=== PATIENT | female | born 1950 | race African-American/Black ===

== ENCOUNTER 2018-08-14 19:49 | Inpatient (IN) | payer MEDICARE, MEDICAID ==
[2018-08-14 22:26] LABS: Anion Gap 16 mmol/L (10-20); BUN (Urea Nitrogen) 44 mg/dL (9.8-20.1); Calc. Creatinine Clearance 0 mL/min (70-130); Carbon Dioxide 25 mmol/L (23-31); Chloride 105 mmol/L (98-107); Estimated GFR-MDRD 39; Glucose 144 mg/dL (80-115); Potassium 3.4 mmol/L (3.5-5.1); Sodium 143 mmol/L (136-145)
[2018-08-14 23:15] LABS: Calcium 16.5 mg/dL (7.8-10.44)
[2018-08-14] MEDS ORDERED: Senokot S 8.6-50 MG TAB PO PRN (23:43)
[2018-08-14] MEDS ORDERED: Ondansetron PF 4 MG/2 ML Vial IVP PRN (23:43)
[2018-08-14] MEDS ORDERED: Bisacodyl 5 MG TAB PO PRN (23:43)
[2018-08-14] MEDS ORDERED: Acetaminophen 325 MG TAB PO PRN (23:43)
[2018-08-15 01:09] LABS: Anion Gap 16 mmol/L (10-20); BUN (Urea Nitrogen) 43 mg/dL (9.8-20.1); Calc. Creatinine Clearance 57 mL/min (70-130); Carbon Dioxide 26 mmol/L (23-31); Chloride 107 mmol/L (98-107); Estimated GFR-MDRD 41; Glucose 168 mg/dL (80-115); Potassium 3.5 mmol/L (3.5-5.1); Sodium 145 mmol/L (136-145)
[2018-08-15 01:12] LABS: Calcium 16.1 mg/dL (7.8-10.44)
[2018-08-15] MEDS: Sodium Chloride 0.9% 1,000 ML IV SCH ×2 (01:12→08:09)
[2018-08-15 01:30] LABS: #Lymphocytes 0.5 thou/uL (1.20-3.40); #Monocytes 0.7 thou/uL (0.11-0.59); #Neutrophils 13.7 thou/uL (1.40-6.50); %Eosinophils 0.3 % (0.0-10.0); %Lymphocytes 3.5 % (21.0-51.0); %Monocytes 4.5 % (0.0-10.0); %Neutrophils 91.7 % (42.0-75.0); Mean Corpuscular HGB CONC 29.2 g/dL (32.0-36.0); Mean Corpuscular Hemoglobin 25.3 pg (27.0-31.0); Mean Corpuscular Volume 86.4 fL (78.0-98.0); Mean Platelet Volume 9.1 fL (7.4-10.4); Platelet Count 400 thou/uL (130-400); RBC Distribution Width 15.7 % (11.5-14.5); Red Blood Cell (RBC) Count 5.14 mill/uL (4.20-5.40); White Blood Cell (WBC) Count 14.9 thou/uL (4.8-10.8)
[2018-08-15 01:31] LABS: Lymphocytes 5 % (21-51); MDiff Complete? YES; Monocytes 1 % (0-10); Neutrophil 94 % (42-75); PLT Morphology Comment Appears Adequate; RBC Morphology Normal
--- NOTE | 2018-08-15 01:37 | PDOC.EVN ---
Event Note - Event Note Event Note: h&p [id number]
[2018-08-15 02:05] LABS: Lactic Acid 1.8 mmol/L (0.5-2.2)
[2018-08-15 02:09] LABS: ALT (SGPT) 17 U/L (8-55); AST (SGOT) 13 U/L (5-34); Albumin 3.2 g/dL (3.4-4.8); Alkaline Phosphatase 117 U/L (40-150); Anion Gap 14 mmol/L (10-20); BUN (Urea Nitrogen) 41 mg/dL (9.8-20.1); Bilirubin, Total 0.3 mg/dL (0.2-1.2); Calc. Creatinine Clearance 60 mL/min (70-130); Carbon Dioxide 26 mmol/L (23-31); Chloride 108 mmol/L (98-107); Estimated GFR-MDRD 43; Globulin 5.1 g/dL (2.4-3.5); Glucose 163 mg/dL (80-115); Protein, Total 8.3 g/dL (6.0-8.3); Sodium 145 mmol/L (136-145)
[2018-08-15 02:11] LABS: Calcium 15.9 mg/dL (7.8-10.44)
[2018-08-15] MEDS: cefTRIAXone\\ROCEPHIN 1 GM in Sodium Chloride 0.9% 100 ML IVPB SCH (03:23)
--- NOTE | 2018-08-15 03:36 | HP ---
PRIMARY CARE PHYSICIAN: Patient does not have a listed PCP that she is able to recall. CHIEF COMPLAINT: Altered mental status. HISTORY OF PRESENT ILLNESS: This is a 67-year-old female with a recent diagnosis of lung cancer who was brought in by her family for decreased mentation. At the time of my evaluation, the patient is unable to provide a history. She is arousable, answers simple questions, but is unable to provide narrative. She has brought in from another hospital emerg ency department in [place] where she is found to have hypercalcemia and urinary tract infection. She has been given IV fluids and Rocephin at that facility. At the time of my evaluation in the emergency department, the patient is still unable to give a histo ry. There is no one picking up her home phone. REVIEW OF SYSTEMS: Unable to obtain secondary to patient's decreased mentation. She is very limited in her ability to provide a history at this point in time. PAST MEDICAL HISTORY: Per ER report, significant for metastatic lung cancer, unknown type. The ny ent was presumably supposed to start chemotherapy on Thursday. PAST SURGICAL HISTORY: Unable to obtain. Per ER records, it also appears that the patient's family members that brought her in also knew very little of her past medical or recent condition. SOCIAL HISTORY: Unable to obtain. FAMILY HISTORY: Unable to obtain. ALLERGIES: Unable to accurately obtain. PHYSICAL EXAMINATION: VITAL SIGNS: Initial vital signs, blood pressure 165/94, heart rate of 93, respirations 20, temperat ure of 98.1, satting 97% on room air. GENERAL: The patient is lying in the hospital bed, in no acute distress. Her eyes are closed. She is arousable, able to answer simple questions, able to state her name, able to answer yes or no quest ions, but unable to give any narrative. HEENT: Equal ocular motions are intact. Very dry mucous membranes. Normocephalic, atraumatic. CARDIOVASCULAR: S1, S2. No murmurs, rubs, or gallops. Pulses 2+ bilateral upper extremities. RESPIRATORY: No conversational dyspnea. Reasonable air movement. Clear to auscultation. ABDOMEN: Large, obese, positive bowel sounds, soft, tender to deep palpation, but not tender to mild palpation. LABORATORY DATA AND IMAGING: WBC 14.9, hemoglobin 13.0, hematocrit 44.4, platelets of 400. Sodium 1 45, potassium 3.5, bicarbonate 107, BUN 16, creatinine 1.52, glucose 168, calcium 6.1, magnesium 2.0. ASSESSMENT AND PLAN: 1. Hypercalcemia, etiology is not completely clear, but suspect it may be related to the patient's u nderlying oncologic issues. Continue with IV fluid. Serum calcium has slowly improved from 16.5 to first repeat at 16.1. We will continue to closely monitor and maintain on telemetry. I appreciate n ephrology consultation. I appreciate oncology consultation as well. 2. Lung cancer, unknown type, staging, although suspected metastases. 3. Leukocytosis, unclear if a component of infection is involved. It appears that there was a urina ry tract infection noted in the emergency department. We will continue with empiric ceftriaxone for the time being and repeat UA, blood culture, urine culture as well. Check a lactic acid for this pat ient as well who has elevated neutrophils and leukocytosis. Continue supportive management as per ab sherinee. DIET: As tolerated. ACTIVITY: As tolerated. Deep venous thrombosis prophylaxis: Enoxaparin.
[2018-08-15 05:56] LABS: Anion Gap 17 mmol/L (10-20); BUN (Urea Nitrogen) 39 mg/dL (9.8-20.1); Calc. Creatinine Clearance 64 mL/min (70-130); Carbon Dioxide 24 mmol/L (23-31); Chloride 111 mmol/L (98-107); Estimated GFR-MDRD 47; Glucose 119 mg/dL (80-115); Potassium 3.7 mmol/L (3.5-5.1); Sodium 148 mmol/L (136-145)
[2018-08-15 05:58] LABS: Calcium 15.5 mg/dL (7.8-10.44)
[2018-08-15] MEDS ORDERED: Eucerin (Mineral Oil/Petrolatum,White) 30 gm Jar TOP PRN (07:13)
[2018-08-15] MEDS ORDERED: Zolpidem Tartrate 5 MG TAB PO PRN (07:13)
[2018-08-15] MEDS ORDERED: Loperamide HCl 2 MG CAP PO PRN (07:13)
[2018-08-15] MEDS ORDERED: Cepastat Lozenges 1 LOZ PO PRN (07:13)
[2018-08-15] MEDS ORDERED: Artificial Tears 18 DROP/0.9 ML EA EYE PRN (07:13)
[2018-08-15] MEDS ORDERED: Sodium Chloride 0.65% Nasal 44 ML BOT EA NARE PRN (07:13)
[2018-08-15] MEDS ORDERED: Bisacodyl 10 MG SUPP PR PRN (07:13)
[2018-08-15] MEDS ORDERED: Diabetic Tussin 200 MG/10 ML UDCUP PO PRN (07:13)
[2018-08-15] MEDS ORDERED: cloNIDine 0.1 MG TAB PO PRN (07:13)
[2018-08-15] MEDS ORDERED: Ondansetron ODT 4 MG TAB SL PRN (07:13)
[2018-08-15] MEDS ORDERED: hydrALAZINE 20 MG/ML VIAL SLOW IVP PRN (07:13)
[2018-08-15] MEDS ORDERED: HYDROcodone/Acetaminophen 5/325 mg Tablet PO PRN (07:13)
[2018-08-15] MEDS ORDERED: Loratadine 10 MG TAB PO PRN (07:13)
[2018-08-15] MEDS ORDERED: Morphine ER 15 MG TAB PO PRN (07:14)
[2018-08-15] MEDS ORDERED: Dextrose 5% in Water 1,000 ML IV PRN (07:15)
[2018-08-15] MEDS ORDERED: HumaLOG 300 UNITS/3 ML VIAL SC PRN (07:15)
[2018-08-15] MEDS ORDERED: Dextrose 50% Abboject 50 ML SYRINGE SLOW IVP PRN (07:15)
[2018-08-15] MEDS ORDERED: Nitroglycerin 0.4 MG TAB (25 Tab Bottle) SL SCH (07:15)
[2018-08-15 08:15] LABS: Parathyroid Hormone - Intact 4.6 pg/mL (19.8-88.0)
[2018-08-15] MEDS ORDERED: Non-Formulary Item 1 EACH (Rosuvastatin Calcium [Rosuvastatin Calcium] 40 MG) PO SCH (09:00)
[2018-08-15] MEDS ORDERED: DOXEPIN HCL 50 MG PO SCH (09:00)
[2018-08-15] MEDS ORDERED: BUPROPION HCL 150 MG PO SCH (09:00)
[2018-08-15] MEDS ORDERED: Zoledronic Acid 4 MG in Sodium Chloride 0.9% 100 ML IVPB SCH (09:45)
[2018-08-15] MEDS: 1/2 NS w/KCL 20 mEq 1,000 ML IV SCH ×4 (10:05→22:45)
[2018-08-15] MEDS: Heparin 5,000 UNITS/ML VIAL SC SCH ×3 (10:06→21:34)
[2018-08-15] MEDS: Famotidine/PF 20 mg/2ml Vial SLOW IVP SCH ×2 (10:06→21:34)
--- NOTE | 2018-08-15 10:30 | PDOC.PN ---
- Subjective Encounter Start Date: 08/15/18 Encounter Start Time: 07:30 -: old records requested/rev Patient seen and examined. pt is incoherent. No overnight events - Objective Resuscitation Status: Resuscitation Status FULL:Full Resuscitation MAR Reviewed: Yes Vital Signs & Weight: Vital Signs (12 hours) Temp Pulse Resp BP Pulse Ox 08/15/18 07:48 97.6 F 82 20 169/73 H 94 L 08/15/18 04:00 98.0 F 83 20 179/77 H 100 08/14/18 23:55 97.4 F L 86 16 173/73 H 94 L 08/14/18 23:43 94 L Weight Weight 226 lb 6.4 oz Result Diagrams: 08/15/18 00:23 08/15/18 05:20 Additional Labs: Accuchecks 08/15/18 08:00 POC Glucose 92 EKG Reviewed by me: Yes Phys Exam - Physical Examination Constitutional: NAD HEENT: PERRLA, sclera anicteric dry MM Neck: no JVD, supple Respiratory: no wheezing, no rales, no rhonchi Cardiovascular: RRR, no significant murmur, no rub Gastrointestinal: soft, no distention, positive bowel sounds obesity+ Musculoskeletal: no edema, pulses present Neurological: moves all 4 limbs Lymphatic: no nodes Psychiatric: normal affect Skin: no rash, normal turgor Dx/Plan (1) Acute kidney failure Status: Acute (2) Acute metabolic encephalopathy Code(s): G93.41 - METABOLIC ENCEPHALOPATHY Status: Acute (3) Hypercalcemia of malignancy Code(s): E83.52 - HYPERCALCEMIA Status: Acute (4) Hypokalemia Code(s): E87.6 - HYPOKALEMIA Status: Acute (5) Lung cancer Code(s): C34.90 - MALIGNANT NEOPLASM OF UNSP PART OF UNSP BRONCHUS OR LUNG Status: Acute (6) Vitamin D deficiency Code(s): E55.9 - VITAMIN D DEFICIENCY, UNSPECIFIED Status: Acute (7) Anxiety and depression Code(s): F41.9 - ANXIETY DISORDER, UNSPECIFIED; F32.9 - MAJOR DEPRESSIVE DISORDER, SINGLE EPISODE, UNSPECIFIED Status: Chronic (8) Diabetes type 2, controlled Code(s): E11.9 - TYPE 2 DIABETES MELLITUS WITHOUT COMPLICATIONS Status: Chronic (9) Dyslipidemia Code(s): E78.5 - HYPERLIPIDEMIA, UNSPECIFIED Status: Chronic (10) GERD (gastroesophageal reflux disease) Code(s): K21.9 - GASTRO-ESOPHAGEAL REFLUX DISEASE WITHOUT ESOPHAGITIS Status: Chronic (11) Hypertension Code(s): I10 - ESSENTIAL (PRIMARY) HYPERTENSION Status: Chronic (12) Obesity (BMI 30-39.9) Code(s): E66.9 - OBESITY, UNSPECIFIED Status: Chronic - 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 * home medication reconciled, she is incoherent but slowly improving * continue IVF 1/2 NS at 125 ml per hour and continue IV lasix * check PTH, PTHRP, VITAMIN D, PHOS * check UA, urine calcium * oncology and nephology consult * medication reviewed as below * symptomatic treatment * monitor labs . Review of Systems - Review of Systems Other: unable to review due to encephalopathy - Medications/Allergies Allergies/Adverse Reactions: Allergies Allergy/AdvReac Type Severity Reaction Status Date / Time No Known Allergies Allergy Unverified 08/14/18 23:52 Medications: Current Medications Acetaminophen (Tylenol) 500 mg PO Q6H PRN PRN Reason: Mild Pain (1-3) Hydrocodone Bitart/Acetaminophen ([place] 5/325) 1 tab PO Q4H PRN PRN Reason: Moderate Pain (4-6) Amlodipine Besylate (Norvasc) 10 mg PO DAILY [facility] Artificial Tears (Tears Naturale) 2 drop EA EYE PRN PRN PRN Reason: Dry Eyes Bisacodyl (Dulcolax) 10 mg PO DAILYPRN PRN PRN Reason: Constipation Bisacodyl (Dulcolax) 10 mg [place] DAILYPRN PRN PRN Reason: Constipation Bupropion HCl (Wellbutrin Sr) 150 mg PO BID [facility] Cholecalciferol (Vitamin D3) 1,000 units PO DAILY [facility] Clonidine (Catapres) 0.2 mg PO BID [facility] Clonidine (Catapres) 0.1 mg PO Q4H PRN PRN Reason: SBP Greater Than 170 Clopidogrel Bisulfate (Plavix) 75 mg PO DAILY [facility] Dextrose/Water (Dextrose 50%) 25 gm SLOW IVP PRN PRN PRN Reason: Hypoglycemia Doxepin HCl (Sinequan) 50 mg PO DAILY [facility] Famotidine (Pepcid) 20 mg SLOW IVP Q12HR [facility] Last Admin: 11/04/18 10:06 Dose: 20 mg Furosemide (Lasix) 20 mg SLOW IVP 0600,1400 [facility] Glucagon (Glucagon) 1 mg IM PRN PRN PRN Reason: Hypoglycemia Guaifenesin (Robitussin Sf) 200 mg PO Q4H PRN PRN Reason: Cough Heparin Sodium (Porcine) (Heparin) 5,000 units SC TID [facility] Last Admin: 08/15/18 10:06 Dose: 5,000 units Hydralazine HCl (Apresoline) 10 mg SLOW IVP Q4H PRN PRN Reason: SBP Greater Than 170 Ceftriaxone Sodium 1 gm/ (Sodium Chloride) 100 mls @ 200 mls/hr IVPB Q24HR [facility] Last Admin: 08/15/18 03:23 Dose: 100 mls Potassium Chloride/Sodium Chloride (1/2 Ns W/Kcl 20 Meq) 1,000 mls @ 125 mls/ hr IV .Q8H [facility] Last Admin: 08/15/18 10:05 Dose: 1,000 mls Dextrose/Water (D5w) 1,000 mls @ 0 mls/hr IV .Q0M PRN PRN Reason: Hypoglycemia Zoledronic Acid 4 mg/ Sodium (Chloride) 100 mls @ 100 mls/hr IVPB NOW [facility] Stop: 08/15/18 14:00 Last Admin: 08/15/18 10:18 Dose: 100 mls Insulin Human Lispro (Humalog) 0 units SC .MODERATE SLIDING SC PRN PRN Reason: Moderate Correctional Scale Insulin Human Lispro (Humalog) 0 units SC .BEDTIME SLIDING SC PRN PRN Reason: Bedtime Correctional Scale Isosorbide Mononitrate (Ismo) 20 mg PO DAILY [facility] Loperamide HCl (Imodium) 2 mg PO PRN PRN PRN Reason: Diarrhea/Loose Stools Loratadine (Claritin) 10 mg PO DAILYPRN PRN PRN Reason: Sinus Symptoms Mineral Oil/White Petrolatum (Eucerin Cream) 0 gm TOP BIDPRN PRN PRN Reason: Dry Skin Morphine Sulfate (Ms Contin) 30 mg PO Q8H PRN PRN Reason: Pain Nitroglycerin (Nitrostat) 0.4 mg SL Q5MIN [facility] Ondansetron HCl (Zofran) 4 mg IVP Q6H PRN PRN Reason: Nausea/Vomiting Ondansetron HCl (Zofran Odt) 4 mg SL Q6H PRN PRN Reason: Nausea/Vomiting Potassium Chloride (K-Dur) 20 meq PO BID [facility] Rosuvastatin Calcium (Crestor) 40 mg PO HS [facility] Senna/Docusate Sodium (Senokot S) 2 tab PO BID PRN PRN Reason: Constipation Sodium Chloride (Flush - Normal Saline) 10 ml IVF Q12HR [facility] Last Admin: 08/15/18 10:07 Dose: Not Given Sodium Chloride (Flush - Normal Saline) 10 ml IVF PRN PRN PRN Reason: Saline Flush Sodium Chloride ([place] Nasal [place] 0.65%) 0 ml EA NARE QIDPRN PRN PRN Reason: Nasal Congestion Throat Lozenges (Cepastat Lozenges) 1 micky PO Q2H PRN PRN Reason: Sore Throat Zolpidem Tartrate (Ambien) 5 mg PO HSPRN PRN PRN Reason: Insomnia
[2018-08-15] MEDS: Amlodipine 10 MG TAB PO SCH (10:35)
[2018-08-15] MEDS: Doxepin HCl 25 MG CAP PO SCH (10:36)
[2018-08-15] MEDS: Bupropion 150 MG SR TAB PO SCH ×2 (10:36→21:33)
[2018-08-15] MEDS: cloNIDine 0.2 MG TAB PO SCH ×2 (10:36→21:33)
[2018-08-15] MEDS: Clopidogrel Bisulfate 75 MG TAB PO SCH (10:36)
[2018-08-15] MEDS: Isosorbide Mononitrate 20 MG TAB PO SCH (10:36)
[2018-08-15] MEDS: Potassium Chloride 20 MEQ TAB PO SCH ×2 (10:37→21:33)
[2018-08-15 11:49] LABS: Bilirubin Negative (Negative); Blood, Urine Negative (Negative); Clarity CLEAR (Clear); Glucose, Urine (Dipstick) Negative (Negative); Leukocyte Small (Negative); Nitrite Negative (Negative); Protein, Urine (Dipstick) Negative (Neg-Trace); Urobilinogen 0.2 mg/dL (0.2-1.0); pH, Urine 6.5 (5.0-9.0)
[2018-08-15 11:50] LABS: Bacteria/HPF None Seen HPF (None Seen); Pathc Cast-AUWi Flag 2.32 (0-2.49); RBC/HPF 0-3 HPF (0-3)
[2018-08-15 12:28] LABS: Hyaline Casts/LPF 0-3 HYALINE CAST LPF (0-3 Hyaline)
[2018-08-15 12:53] LABS: Anion Gap 15 mmol/L (10-20); BUN (Urea Nitrogen) 35 mg/dL (9.8-20.1); Calc. Creatinine Clearance 65 mL/min (70-130); Carbon Dioxide 26 mmol/L (23-31); Chloride 109 mmol/L (98-107); Estimated GFR-MDRD 47; Glucose 100 mg/dL (80-115); Potassium 3.3 mmol/L (3.5-5.1); Sodium 147 mmol/L (136-145)
[2018-08-15 13:00] LABS: Calcium 16.7 mg/dL (7.8-10.44)
--- NOTE | 2018-08-15 14:13 | CON ---
DATE OF CONSULTATION: 08/15/2018 CONSULTING PHYSICIAN: Lorne Bustillos MD REASON FOR CONSULTATION: Acute kidney injury. REASON FOR ADMISSION: Altered mentation. HISTORY OF PRESENT ILLNESS: A 67-year-old female with history of lung cancer, came to the hospital w ith altered mentation. Nephrology is consulted for acute kidney injury. Her creatinine was 1.5. The patient is not able to give a good history. No chest pain or palpitation reported. Patient has also hypocalcemia and Oncology is following. PAST MEDICAL HISTORY: Positive for metastatic lung cancer. PAST SURGICAL HISTORY: Not available. HOME MEDICATIONS: Include nitroglycerin, Glucotrol, metformin, metoprolol, bupropion, potassium, mor phine, Lasix, Plavix, , Levemir. ALLERGIES: No known drug allergies. SOCIAL HISTORY: No smoking, alcohol, or illicit drug abuse. FAMILY HISTORY: No history of kidney disease. REVIEW OF SYSTEMS: Could not be obtained. The patient not able to participate very well. PHYSICAL EXAMINATION: GENERAL: This is a well-built female in no apparent distress. VITAL SIGNS: Temperature 97.6, pulse 82, respiratory rate 16, blood pressure 116/72. HEENT: Atraumatic, normocephalic. Oral mucosa is moist. NECK: Supple, no masses. CARDIOVASCULAR: S1, S2 heard. Rate and rhythm regular. RESPIRATORY: Clear. ABDOMEN: Soft. EXTREMITIES: 1+ edema. DERMATOLOGIC: No skin rash. NEUROLOGIC: Lethargic. LABORATORY DATA: Hemoglobin is 13.0, potassium is 3.3, BUN is 35, creatinine is 1.3. ASSESSMENT AND PLAN: 1. Acute kidney injury, most likely volume depletion, getting better. 2. Hypercalcemia. Agree with hydration and Zometa being given. 3. Hypokalemia, replace and monitor. 4. Vitamin D deficiency. 5. Edema, controlled. Continue hydration, avoid nephrotoxins. 6. Hypernatremia. Continue with . Monitor labs closely. Continue to monitor calcium and hydra tion if tolerated. Thank you for the consult.
[2018-08-15] MEDS: Furosemide 20 MG/2 ML VIAL SLOW IVP SCH (14:46)
[2018-08-15 16:25] LABS: Reference Lab Name LABCORP
[2018-08-15 17:19] LABS: Anion Gap 16 mmol/L (10-20); BUN (Urea Nitrogen) 32 mg/dL (9.8-20.1); Calc. Creatinine Clearance 65 mL/min (70-130); Carbon Dioxide 25 mmol/L (23-31); Chloride 108 mmol/L (98-107); Estimated GFR-MDRD 47; Glucose 121 mg/dL (80-115); Potassium 3.4 mmol/L (3.5-5.1); Sodium 146 mmol/L (136-145)
[2018-08-15 17:32] LABS: Calcium 16.7 mg/dL (7.8-10.44)
[2018-08-15] MEDS: Rosuvastatin 20 MG TAB PO SCH (21:33)
[2018-08-15 22:47] LABS: Anion Gap 17 mmol/L (10-20); BUN (Urea Nitrogen) 32 mg/dL (9.8-20.1); Calc. Creatinine Clearance 61 mL/min (70-130); Calcium 16.8 mg/dL (7.8-10.44); Carbon Dioxide 27 mmol/L (23-31); Chloride 107 mmol/L (98-107); Estimated GFR-MDRD 45; Glucose 126 mg/dL (80-115); Potassium 3.2 mmol/L (3.5-5.1); Sodium 148 mmol/L (136-145)
[2018-08-16] MEDS: cefTRIAXone\\ROCEPHIN 1 GM in Sodium Chloride 0.9% 100 ML IVPB SCH (01:03)
[2018-08-16 05:17] LABS: #Lymphocytes 0.6 thou/uL (1.20-3.40); #Monocytes 1.7 thou/uL (0.11-0.59); #Neutrophils 16.2 thou/uL (1.40-6.50); %Eosinophils 0.2 % (0.0-10.0); %Lymphocytes 3.3 % (21.0-51.0); %Monocytes 9.4 % (0.0-10.0); %Neutrophils 87.1 % (42.0-75.0); Hemoglobin 13.4 g/dL (12.0-16.0); Mean Corpuscular Hemoglobin 24.9 pg (27.0-31.0); Mean Corpuscular Volume 85.8 fL (78.0-98.0); Mean Platelet Volume 9.3 fL (7.4-10.4); Platelet Count 386 thou/uL (130-400); RBC Distribution Width 15.8 % (11.5-14.5); Red Blood Cell (RBC) Count 5.37 mill/uL (4.20-5.40); White Blood Cell (WBC) Count 18.6 thou/uL (4.8-10.8)
[2018-08-16 05:19] LABS: Anion Gap 15 mmol/L (10-20); BUN (Urea Nitrogen) 30 mg/dL (9.8-20.1); Calc. Creatinine Clearance 65 mL/min (70-130); Carbon Dioxide 26 mmol/L (23-31); Chloride 109 mmol/L (98-107); Estimated GFR-MDRD 48; Glucose 128 mg/dL (80-115); Potassium 3.2 mmol/L (3.5-5.1); Sodium 147 mmol/L (136-145)
[2018-08-16 05:21] LABS: Calcium 15.5 mg/dL (7.8-10.44)
[2018-08-16] MEDS: 1/2 NS w/KCL 20 mEq 1,000 ML IV SCH ×2 (06:27→16:27)
[2018-08-16] MEDS: Furosemide 20 MG/2 ML VIAL SLOW IVP SCH ×2 (06:27→14:21)
[2018-08-16] MEDS: Heparin 5,000 UNITS/ML VIAL SC SCH ×3 (09:10→21:30)
[2018-08-16] MEDS: Famotidine/PF 20 mg/2ml Vial SLOW IVP SCH ×2 (09:10→21:30)
--- NOTE | 2018-08-16 09:30 | PDOC.PN ---
- Subjective Encounter Start Date: 08/16/18 Encounter Start Time: 07:20 pt is more alert, arousable, still confused and appears very weak Patient seen and examined. No overnight events - Objective Resuscitation Status: Resuscitation Status FULL:Full Resuscitation MAR Reviewed: Yes Vital Signs & Weight: Vital Signs (12 hours) Temp Pulse Resp BP BP Pulse Ox 08/16/18 07:30 98.5 F 88 22 H 157/72 H 100 08/16/18 04:00 98.1 F 91 22 H 172/86 H 100 08/16/18 00:00 97.9 F 90 18 142/91 H 100 08/15/18 21:33 164/74 H Weight Weight 226 lb 6.4 oz I&O: 08/15/18 08/16/18 08/17/18 06:59 06:59 06:59 Intake Total 1140 1500 Output Total 40 Balance 1100 1500 Result Diagrams: 08/16/18 04:24 08/16/18 04:24 Additional Labs: Accuchecks 08/16/18 08/15/18 08/15/18 05:44 20:40 16:46 POC Glucose 111 H 104 115 H 08/15/18 12:44 POC Glucose 97 EKG Reviewed by me: Yes (nsr) Phys Exam - Physical Examination Constitutional: NAD HEENT: PERRLA, sclera anicteric dry MM Neck: no JVD, supple Respiratory: no wheezing, no rales, no rhonchi Cardiovascular: RRR, no significant murmur, no rub Gastrointestinal: soft, non-tender, no distention, positive bowel sounds Musculoskeletal: no edema, pulses present Neurological: moves all 4 limbs Lymphatic: no nodes Psychiatric: normal affect Skin: no rash, normal turgor Dx/Plan (1) Acute kidney failure Status: Acute (2) Acute metabolic encephalopathy Code(s): G93.41 - METABOLIC ENCEPHALOPATHY Status: Acute (3) Hypercalcemia of malignancy Code(s): E83.52 - HYPERCALCEMIA Status: Acute (4) Hypokalemia Code(s): E87.6 - HYPOKALEMIA Status: Acute (5) Lung cancer Code(s): C34.90 - MALIGNANT NEOPLASM OF UNSP PART OF UNSP BRONCHUS OR LUNG Status: Acute (6) Vitamin D deficiency Code(s): E55.9 - VITAMIN D DEFICIENCY, UNSPECIFIED Status: Acute (7) Anxiety and depression Code(s): F41.9 - ANXIETY DISORDER, UNSPECIFIED; F32.9 - MAJOR DEPRESSIVE DISORDER, SINGLE EPISODE, UNSPECIFIED Status: Chronic (8) Diabetes type 2, controlled Code(s): E11.9 - TYPE 2 DIABETES MELLITUS WITHOUT COMPLICATIONS Status: Chronic (9) Dyslipidemia Code(s): E78.5 - HYPERLIPIDEMIA, UNSPECIFIED Status: Chronic (10) GERD (gastroesophageal reflux disease) Code(s): K21.9 - GASTRO-ESOPHAGEAL REFLUX DISEASE WITHOUT ESOPHAGITIS Status: Chronic (11) Hypertension Code(s): I10 - ESSENTIAL (PRIMARY) HYPERTENSION Status: Chronic (12) Obesity (BMI 30-39.9) Code(s): E66.9 - OBESITY, UNSPECIFIED Status: Chronic (13) Hypomagnesemia Code(s): E83.42 - HYPOMAGNESEMIA Status: Acute (14) Leucocytosis Code(s): D72.829 - ELEVATED WHITE BLOOD CELL COUNT, UNSPECIFIED Status: Acute - 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, continue antibiotics, PT/OT * pt is tolerating IVF, she is lying flat and on room air, continue lasix as well to prevent fluid overload, still calcium very high, Zolendronic acid given yesterday, so expecting improvement soon * today replace magnesium and potassium * renal function are stable * oncology and nephrology input appreciated * will need placement on discharge * start bedside swallow evaluation, call speech therapy if needed and start diet as tolerated * start PT/OT * medication reviewed as below * symptomatic treatment . Review of Systems - Review of Systems ENT: negative: Ear Pain, Ear Discharge, Nose Pain, Nose Discharge, Nose Congestion, Mouth Pain, Mouth Swelling, Throat Pain, Throat Swelling, Other Respiratory: negative: Cough, Dry, Shortness of Breath, Hemoptysis, SOB with Excertion, Pleuritic Pain, Sputum, Wheezing Cardiovascular: negative: chest pain, palpitations, orthopnea, paroxysmal nocturnal dyspnea, edema, light headedness, other Gastrointestinal: negative: Nausea, Vomiting, Abdominal Pain, Diarrhea, Constipation, Melena, Hematochezia, Other Genitourinary: negative: Dysuria, Frequency, Incontinence, Hematuria, Retention , Other Musculoskeletal: negative: Neck Pain, Shoulder Pain, Arm Pain, Back Pain, Hand Pain, Leg Pain, Foot Pain, Other Skin: negative: Rash, Lesions, Carlos, Bruising, Other Other: not reliable due to her level of cognitive status - Medications/Allergies Allergies/Adverse Reactions: Allergies Allergy/AdvReac Type Severity Reaction Status Date / Time No Known Allergies Allergy Unverified 08/14/18 23:52 Medications: Current Medications Acetaminophen (Tylenol) 500 mg PO Q6H PRN PRN Reason: Mild Pain (1-3) Hydrocodone Bitart/Acetaminophen ([place] 5/325) 1 tab PO Q4H PRN PRN Reason: Moderate Pain (4-6) Amlodipine Besylate (Norvasc) 10 mg PO DAILY [facility] Last Admin: 08/15/18 10:35 Dose: Not Given Artificial Tears (Tears Naturale) 2 drop EA EYE PRN PRN PRN Reason: Dry Eyes Bisacodyl (Dulcolax) 10 mg PO DAILYPRN PRN PRN Reason: Constipation Bisacodyl (Dulcolax) 10 mg [place] DAILYPRN PRN PRN Reason: Constipation Bupropion HCl (Wellbutrin Sr) 150 mg PO BID [facility] Last Admin: 08/15/18 21:33 Dose: Not Given Cholecalciferol (Vitamin D3) 1,000 units PO DAILY [facility] Clonidine (Catapres) 0.2 mg PO BID [facility] Last Admin: 08/15/18 21:33 Dose: Not Given Clonidine (Catapres) 0.1 mg PO Q4H PRN PRN Reason: SBP Greater Than 170 Clopidogrel Bisulfate (Plavix) 75 mg PO DAILY [facility] Last Admin: 08/15/18 10:36 Dose: Not Given Dextrose/Water (Dextrose 50%) 25 gm SLOW IVP PRN PRN PRN Reason: Hypoglycemia Doxepin HCl (Sinequan) 50 mg PO DAILY [facility] Last Admin: 08/15/18 10:36 Dose: Not Given Famotidine (Pepcid) 20 mg SLOW IVP Q12HR [facility]PL[facility]ED BY [facility] Last Admin: 08/16/18 09:10 Dose: 20 mg Furosemide (Lasix) 20 mg SLOW IVP 0600,1400 REPL[facility]ED BY [facility] Last Admin: 08/16/18 06:27 Dose: 20 mg Glucagon (Glucagon) 1 mg IM PRN PRN PRN Reason: Hypoglycemia Guaifenesin (Robitussin Sf) 200 mg PO Q4H PRN PRN Reason: Cough Heparin Sodium (Porcine) (Heparin) 5,000 units SC TID [facility]PL[facility] Last Admin: 08/16/18 09:10 Dose: 5,000 units Hydralazine HCl (Apresoline) 10 mg SLOW IVP Q4H PRN PRN Reason: SBP Greater Than 170 Last Admin: 08/15/18 13:22 Dose: 10 mg Ceftriaxone Sodium 1 gm/ (Sodium Chloride) 100 mls @ 200 mls/hr IVPB Q24HR [facility]PL[facility]ED BY [facility] Last Admin: 08/16/18 01:03 Dose: 100 mls Potassium Chloride/Sodium Chloride (1/2 Ns W/Kcl 20 Meq) 1,000 mls @ 125 mls/ hr IV .Q8H REPLACED [facility] Last Admin: 08/16/18 06:27 Dose: 1,000 mls Dextrose/Water (D5w) 1,000 mls @ 0 mls/hr IV .Q0M PRN PRN Reason: Hypoglycemia Insulin Human Lispro (Humalog) 0 units SC .MODERATE SLIDING SC PRN PRN Reason: Moderate Correctional Scale Insulin Human Lispro (Humalog) 0 units SC .BEDTIME SLIDING SC PRN PRN Reason: Bedtime Correctional Scale Isosorbide Mononitrate (Ismo) 20 mg PO DAILY [facility] Last Admin: 08/15/18 10:36 Dose: Not Given Loperamide HCl (Imodium) 2 mg PO PRN PRN PRN Reason: Diarrhea/Loose Stools Loratadine (Claritin) 10 mg PO DAILYPRN PRN PRN Reason: Sinus Symptoms Mineral Oil/White Petrolatum (Eucerin Cream) 0 gm TOP BIDPRN PRN PRN Reason: Dry Skin Morphine Sulfate (Ms Contin) 30 mg PO Q8H PRN PRN Reason: Pain Nitroglycerin (Nitrostat) 0.4 mg SL Q5MIN REPLACED BY [facility] Ondansetron HCl (Zofran) 4 mg IVP Q6H PRN PRN Reason: Nausea/Vomiting Ondansetron HCl (Zofran Odt) 4 mg SL Q6H PRN PRN Reason: Nausea/Vomiting Potassium Chloride (K-Dur) 20 meq PO BID [facility] Last Admin: 08/15/18 21:33 Dose: Not Given Rosuvastatin Calcium (Crestor) 40 mg PO HS REPLACED BY [facility] Last Admin: 08/15/18 21:33 Dose: Not Given Senna/Docusate Sodium (Senokot S) 2 tab PO BID PRN PRN Reason: Constipation Sodium Chloride (Flush - Normal Saline) 10 ml IVF Q12HR [facility] Last Admin: 08/15/18 21:33 Dose: Not Given Sodium Chloride (Flush - Normal Saline) 10 ml IVF PRN PRN PRN Reason: Saline Flush Sodium Chloride ([place] Nasal [place] 0.65%) 0 ml EA NARE QIDPRN PRN PRN Reason: Nasal Congestion Throat Lozenges (Cepastat Lozenges) 1 micky PO Q2H PRN PRN Reason: Sore Throat Zolpidem Tartrate (Ambien) 5 mg PO HSPRN PRN PRN Reason: Insomnia
[2018-08-16 11:09] LABS: Anion Gap 16 mmol/L (10-20); Carbon Dioxide 23 mmol/L (23-31); Chloride 110 mmol/L (98-107); Potassium 3.2 mmol/L (3.5-5.1); Sodium 146 mmol/L (136-145)
[2018-08-16 11:15] LABS: Calcium 15.2 mg/dL (7.8-10.44)
[2018-08-16] MEDS: Doxepin HCl 25 MG CAP PO SCH (11:53)
[2018-08-16] MEDS: Amlodipine 10 MG TAB PO SCH (11:53)
[2018-08-16] MEDS: Clopidogrel Bisulfate 75 MG TAB PO SCH (11:54)
[2018-08-16] MEDS: Bupropion 150 MG SR TAB PO SCH ×2 (11:55→21:30)
[2018-08-16] MEDS: Potassium Chloride 20 MEQ TAB PO SCH ×2 (11:55→21:29)
[2018-08-16] MEDS: cloNIDine 0.2 MG TAB PO SCH ×2 (11:55→21:29)
[2018-08-16] MEDS: Isosorbide Mononitrate 20 MG TAB PO SCH (11:55)
--- NOTE | 2018-08-16 11:56 | PRG ---
DATE OF SERVICE: 08/16/2018 SUBJECTIVE: A 67-year-old female being seen for acute kidney injury and hypercalcemia. PHYSICAL EXAMINATION: GENERAL: The patient is resting. No new problems reported by the nurses. The patient is resting. VITAL SIGNS: Afebrile, pulse 88, breathing 16, blood pressure 172/86. OBJECTIVE: See above. Awake, alert, in no acute distress. GENERAL APPEARANCE AND MENTAL STATUS: Fair. HEAD/NECK: Normocephalic. Atraumatic. EYES: EOMI. No deformity. EARS: Clear. No ulcers. NOSE: Intact. No lesions. MOUTH: Clear. No discharge. THROAT: Clear. No exudate. LUNGS: Clear. No crackles. CARDIAC: S1, S2. No rub. ABDOMEN: Benign. BS+. GENITALIA/RECTUM: Young absent. BACK/EXTREMITIES: Edema 0+ Ulcer- NEUROLOGICAL: Alert and motor intact. SKIN: Rash- Bruise- LYMPHATICS: Edema- Ulcer- LABORATORY: Hemoglobin is 13.4, potassium is 3.2, creatinine is 1.3, calcium is 15.2, and magnesium 1.4. ASSESSMENT AND RECOMMENDATIONS: 1. Hypercalcemia, most likely because of malignancy. Agree with medication. 2. Hypertension, stable. 3. Anemia, stable. 4. Hypernatremia. Continue half normal saline. 5. Medication based on glomerular filtration rate are appropriate. No indication for dialysis.
[2018-08-16 13:48] LABS: Glucose 104 mg/dL (80-115)
[2018-08-16 13:51] LABS: Calc. Creatinine Clearance 62 mL/min (70-130); Estimated GFR-MDRD 45
[2018-08-16 13:52] LABS: BUN (Urea Nitrogen) 29 mg/dL (9.8-20.1)
[2018-08-16 17:53] LABS: Anion Gap 14 mmol/L (10-20); BUN (Urea Nitrogen) 29 mg/dL (9.8-20.1); Calc. Creatinine Clearance 61 mL/min (70-130); Carbon Dioxide 26 mmol/L (23-31); Chloride 109 mmol/L (98-107); Estimated GFR-MDRD 44; Glucose 112 mg/dL (80-115); Potassium 3.3 mmol/L (3.5-5.1); Sodium 146 mmol/L (136-145)
[2018-08-16 17:57] LABS: Calcium 14.1 mg/dL (7.8-10.44)
[2018-08-16] MEDS: Rosuvastatin 20 MG TAB PO SCH (21:30)
--- NOTE | 2018-08-16 22:35 | CON ---
DATE OF CONSULTATION: 08/16/2018 REASON FOR CONSULTATION: Hypercalcemia. HISTORY OF PRESENT ILLNESS: The patient is a 59-year-old -[place] woman who presented to the emergency room in [place] with altered mental status. An evaluation there included multiple labor atory studies including calcium which was 16. Brain imaging was negative. A chest x-ray reportedly showed a possible right lower lobe pneumonia. In the admission history and physical to [facility] upon transfer, there is some mention of lung cancer, although this is unconfirmed. She was transferr ed and admitted to [facility] for definitive diagnosis and treatment. Studies here have included laboratory studies showing normal electrolytes except for moderate marginal potas sium of 3.4. The creatinine is 1.58 and BUN 44. Liver function studies are normal. The albumin is 3.2 and globulin elevated at 5.1. The calcium was 16.5 on admission. CBC showed a white blood cell count of 14.9, hemoglobin 13.0, and platelet count 400,000. The white blood cell differential was no rmal except for a left shift. No imaging has been performed. I am asked to see the patient at this time to provide further management and recommendations regarding the hypercalcemia. PAST MEDICAL HISTORY AND ALLERGIES: None noted, but the patient is not able to provide a significant history secondary to altered mental status. MEDICATIONS: Unknown. PAST MEDICAL HISTORY: The ER report mentions metastatic lung cancer, but this is unconfirmed. PAST SURGICAL HISTORY: None known. SOCIAL HISTORY: Unable to obtain. FAMILY HISTORY: Unable to obtain. REVIEW OF SYSTEMS: Inaccurate secondary to altered mental status. PHYSICAL EXAMINATION: VITAL SIGNS: Temperature 98.6, pulse 88, respirations 22, blood pressure 157/72. GENERAL: The patient is well-developed and well-nourished, in no acute distress. She is oriented to time and place. Level of consciousness is normal, but she is unable to carry on an appropriate conv ersation. HEENT: The extraocular movements are intact and the pupils equal, round, and reactive to light. NECK: Supple. LUNGS: Clear. CARDIOVASCULAR: Regular rate and rhythm without murmur, rub, gallop or click. ABDOMEN: No tenderness, organomegaly, masses, bruits or ascites. EXTREMITIES: No clubbing, cyanosis or edema. SKIN: Normal. LYMPH: There is no definite adenopathy, but the right supraclavicular area is somewhat full. NEUROLOGIC: No focal findings. LABORATORY DATA: See history of present illness. IMPRESSION: Hypercalcemia of malignancy. RECOMMENDATIONS: Given the magnitude of the hypercalcemia, the etiology is almost certainly malignan cy. However, the history does not confirm the definite presence of lung cancer. The elevated globul in level suggest possible multiple myeloma. I plan to order a serum protein electrophoresis and howie titative immunoglobulins. I will review the imaging from the [facility]. However, a CT sca n of the chest and abdomen will likely be required as well as a bone scan when patient is more capabl e of participating in these studies subsequent to bring down the calcium. Thanks very much for allowing me to provide my recommendations.
[2018-08-17] MEDS: 1/2 NS w/KCL 20 mEq 1,000 ML IV SCH ×3 (00:39→19:03)
[2018-08-17] MEDS: cefTRIAXone\\ROCEPHIN 1 GM in Sodium Chloride 0.9% 100 ML IVPB SCH (02:38)
[2018-08-17] MEDS: Furosemide 20 MG/2 ML VIAL SLOW IVP SCH ×2 (05:42→13:29)
[2018-08-17 07:12] LABS: #Eosinphils 0.1 thou/uL (0.0-0.7); #Lymphocytes 0.9 thou/uL (1.20-3.40); #Monocytes 1.9 thou/uL (0.11-0.59); %Eosinophils 0.4 % (0.0-10.0); %Lymphocytes 6.2 % (21.0-51.0); %Neutrophils 80.4 % (42.0-75.0); Mean Corpuscular HGB CONC 29.3 g/dL (32.0-36.0); Mean Corpuscular Hemoglobin 25.6 pg (27.0-31.0); Mean Corpuscular Volume 87.2 fL (78.0-98.0); Mean Platelet Volume 9.1 fL (7.4-10.4); Platelet Count 307 thou/uL (130-400); RBC Distribution Width 15.9 % (11.5-14.5); Red Blood Cell (RBC) Count 4.68 mill/uL (4.20-5.40); White Blood Cell (WBC) Count 14.9 thou/uL (4.8-10.8)
[2018-08-17 07:57] LABS: Albumin 2.9 g/dL (3.4-4.8); Anion Gap 14 mmol/L (10-20); BUN (Urea Nitrogen) 30 mg/dL (9.8-20.1); BUN/Creatinine Ratio 20.69; Calc. Creatinine Clearance 60 mL/min (70-130); Calcium 13.1 mg/dL (7.8-10.44); Carbon Dioxide 24 mmol/L (23-31); Chloride 111 mmol/L (98-107); Estimated GFR-MDRD 43; Glucose 126 mg/dL (80-115); Magnesium 1.8 mg/dL (1.6-2.6); Potassium 3.5 mmol/L (3.5-5.1); Sodium 145 mmol/L (136-145)
[2018-08-17 08:03] LABS: MDiff Complete? YES; PLT Morphology Comment Appears Adequate; Polychromasia SLIGHT = 2-3 cells (100X) (0-2/hpf)
[2018-08-17] MEDS: Famotidine/PF 20 mg/2ml Vial SLOW IVP SCH ×2 (08:40→21:45)
[2018-08-17] MEDS: Heparin 5,000 UNITS/ML VIAL SC SCH ×3 (08:40→21:45)
[2018-08-17] MEDS: Amlodipine 10 MG TAB PO SCH (08:40)
[2018-08-17] MEDS: Bupropion 150 MG SR TAB PO SCH ×2 (08:41→21:45)
[2018-08-17] MEDS: Doxepin HCl 25 MG CAP PO SCH (08:41)
[2018-08-17] MEDS: Clopidogrel Bisulfate 75 MG TAB PO SCH (08:41)
[2018-08-17] MEDS: Isosorbide Mononitrate 20 MG TAB PO SCH (08:41)
[2018-08-17] MEDS: Potassium Chloride 20 MEQ TAB PO SCH ×2 (08:42→21:45)
[2018-08-17] MEDS: cloNIDine 0.2 MG TAB PO SCH ×2 (08:42→21:45)
[2018-08-17] MEDS ORDERED: Potassium Phosphate 15 MMOL in Sodium Chloride 0.9% 250 ML 250 ML IVPB SCH (08:45)
--- NOTE | 2018-08-17 09:26 | PDOC.PN ---
- Subjective Encounter Start Date: 08/17/18 Encounter Start Time: 07:30 pt feels thirsty Patient seen and examined. No overnight event wants to eat, more alert today - Objective Resuscitation Status: Resuscitation Status FULL:Full Resuscitation MAR Reviewed: Yes Vital Signs & Weight: Vital Signs (12 hours) Temp Pulse Resp BP BP Pulse Ox 08/17/18 08:40 75 125/80 08/17/18 07:40 98.2 F 75 24 H 125/80 100 08/17/18 04:00 98.0 F 77 20 115/57 L 92 L 08/17/18 00:00 98.4 F 77 18 124/56 L 94 L 08/16/18 21:29 117/56 L Weight Weight 226 lb 6.4 oz I&O: 08/16/18 08/17/18 08/18/18 06:59 06:59 06:59 Intake Total 1140 3150 Output Total 40 Balance 1100 3150 Result Diagrams: 08/17/18 05:07 08/17/18 05:07 Additional Labs: Accuchecks 08/17/18 08/16/18 08/16/18 05:38 20:53 17:15 POC Glucose 128 H 124 H 104 08/16/18 11:09 POC Glucose 101 EKG Reviewed by me: Yes Phys Exam - Physical Examination Constitutional: NAD HEENT: PERRLA, sclera anicteric dry MM Neck: no JVD, supple Respiratory: no wheezing, no rales, no rhonchi Cardiovascular: RRR, no significant murmur, no rub Gastrointestinal: soft, non-tender, no distention, positive bowel sounds Musculoskeletal: no edema, pulses present Neurological: non-focal, normal sensation Lymphatic: no nodes Psychiatric: normal affect Skin: no rash, normal turgor Dx/Plan (1) Acute kidney failure Status: Acute Comment: improving with IVF (2) Acute metabolic encephalopathy Code(s): G93.41 - METABOLIC ENCEPHALOPATHY Status: Acute Comment: improving with improvement in electrolytes (3) Hypercalcemia of malignancy Code(s): E83.52 - HYPERCALCEMIA Status: Acute Comment: improving slowly (4) Hypokalemia Code(s): E87.6 - HYPOKALEMIA Status: Acute Comment: corrected (5) Lung cancer Code(s): C34.90 - MALIGNANT NEOPLASM OF UNSP PART OF UNSP BRONCHUS OR LUNG Status: Acute (6) Vitamin D deficiency Code(s): E55.9 - VITAMIN D DEFICIENCY, UNSPECIFIED Status: Acute Comment: on supplement (7) Anxiety and depression Code(s): F41.9 - ANXIETY DISORDER, UNSPECIFIED; F32.9 - MAJOR DEPRESSIVE DISORDER, SINGLE EPISODE, UNSPECIFIED Status: Chronic (8) Diabetes type 2, controlled Code(s): E11.9 - TYPE 2 DIABETES MELLITUS WITHOUT COMPLICATIONS Status: Chronic (9) Dyslipidemia Code(s): E78.5 - HYPERLIPIDEMIA, UNSPECIFIED Status: Chronic (10) GERD (gastroesophageal reflux disease) Code(s): K21.9 - GASTRO-ESOPHAGEAL REFLUX DISEASE WITHOUT ESOPHAGITIS Status: Chronic (11) Hypertension Code(s): I10 - ESSENTIAL (PRIMARY) HYPERTENSION Status: Chronic (12) Obesity (BMI 30-39.9) Code(s): E66.9 - OBESITY, UNSPECIFIED Status: Chronic (13) Hypomagnesemia Code(s): E83.42 - HYPOMAGNESEMIA Status: Acute Comment: corrected (14) Leucocytosis Code(s): D72.829 - ELEVATED WHITE BLOOD CELL COUNT, UNSPECIFIED Status: Acute (15) Hypophosphatemia Code(s): E83.39 - OTHER DISORDERS OF PHOSPHORUS METABOLISM Status: Acute - 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, continue antibiotics * start diet as tolerated * ambulate as tolerated * will need placement * replace potassium phosphate * monitor electrolytes * medication reviewed as below * symptomatic treatment. Review of Systems - Review of Systems ENT: negative: Ear Pain, Ear Discharge, Nose Pain, Nose Discharge, Nose Congestion, Mouth Pain, Mouth Swelling, Throat Pain, Throat Swelling, Other Respiratory: negative: Cough, Dry, Shortness of Breath, Hemoptysis, SOB with Excertion, Pleuritic Pain, Sputum, Wheezing Cardiovascular: negative: chest pain, palpitations, orthopnea, paroxysmal nocturnal dyspnea, edema, light headedness, other Gastrointestinal: negative: Nausea, Vomiting, Abdominal Pain, Diarrhea, Constipation, Melena, Hematochezia, Other Genitourinary: negative: Dysuria, Frequency, Incontinence, Hematuria, Retention , Other Musculoskeletal: negative: Neck Pain, Shoulder Pain, Arm Pain, Back Pain, Hand Pain, Leg Pain, Foot Pain, Other - Medications/Allergies Allergies/Adverse Reactions: Allergies Allergy/AdvReac Type Severity Reaction Status Date / Time No Known Allergies Allergy Unverified 08/14/18 23:52 Medications: Current Medications Acetaminophen (Tylenol) 500 mg PO Q6H PRN PRN Reason: Mild Pain (1-3) Hydrocodone Bitart/Acetaminophen ([place] 5/325) 1 tab PO Q4H PRN PRN Reason: Moderate Pain (4-6) Amlodipine Besylate (Norvasc) 10 mg PO DAILY [facility] Last Admin: 08/17/18 08:40 Dose: 10 mg Artificial Tears (Tears Naturale) 2 drop EA EYE PRN PRN PRN Reason: Dry Eyes Bisacodyl (Dulcolax) 10 mg PO DAILYPRN PRN PRN Reason: Constipation Bisacodyl (Dulcolax) 10 mg [place] DAILYPRN PRN PRN Reason: Constipation Bupropion HCl (Wellbutrin Sr) 150 mg PO BID [facility] Last Admin: 08/17/18 08:41 Dose: 150 mg Clonidine (Catapres) 0.2 mg PO BID [facility] Last Admin: 08/17/18 08:42 Dose: 0.2 mg Clonidine (Catapres) 0.1 mg PO Q4H PRN PRN Reason: SBP Greater Than 170 Clopidogrel Bisulfate (Plavix) 75 mg PO DAILY [facility] Last Admin: 08/17/18 08:41 Dose: 75 mg Dextrose/Water (Dextrose 50%) 25 gm SLOW IVP PRN PRN PRN Reason: Hypoglycemia Doxepin HCl (Sinequan) 50 mg PO DAILY [facility] Last Admin: 08/17/18 08:41 Dose: 50 mg Famotidine (Pepcid) 20 mg SLOW IVP Q12HR [facility] Last Admin: 08/17/18 08:40 Dose: 20 mg Furosemide (Lasix) 20 mg SLOW IVP 0600,1400 [facility] Last Admin: 08/17/18 05:42 Dose: 20 mg Glucagon (Glucagon) 1 mg IM PRN PRN PRN Reason: Hypoglycemia Guaifenesin (Robitussin Sf) 200 mg PO Q4H PRN PRN Reason: Cough Heparin Sodium (Porcine) (Heparin) 5,000 units SC TID [facility] Last Admin: 08/17/18 08:40 Dose: 5,000 units Hydralazine HCl (Apresoline) 10 mg SLOW IVP Q4H PRN PRN Reason: SBP Greater Than 170 Last Admin: 08/15/18 13:22 Dose: 10 mg Ceftriaxone Sodium 1 gm/ (Sodium Chloride) 100 mls @ 200 mls/hr IVPB Q24HR [facility] Last Admin: 08/17/18 02:38 Dose: 100 mls Potassium Chloride/Sodium Chloride (1/2 Ns W/Kcl 20 Meq) 1,000 mls @ 125 mls/ hr IV .Q8H [facility] Last Admin: 08/17/18 08:56 Dose: Not Given Dextrose/Water (D5w) 1,000 mls @ 0 mls/hr IV .Q0M PRN PRN Reason: Hypoglycemia Potassium Phosphate 15 mmol/ (Sodium Chloride) 255 mls @ 62.5 mls/hr IVPB NOW [facility] Stop: 08/17/18 15:00 Insulin Human Lispro (Humalog) 0 units SC .MODERATE SLIDING SC PRN PRN Reason: Moderate Correctional Scale Insulin Human Lispro (Humalog) 0 units SC .BEDTIME SLIDING SC PRN PRN Reason: Bedtime Correctional Scale Isosorbide Mononitrate (Ismo) 20 mg PO DAILY [facility] Last Admin: 08/17/18 08:41 Dose: 20 mg Loperamide HCl (Imodium) 2 mg PO PRN PRN PRN Reason: Diarrhea/Loose Stools Loratadine (Claritin) 10 mg PO DAILYPRN PRN PRN Reason: Sinus Symptoms Mineral Oil/White Petrolatum (Eucerin Cream) 0 gm TOP BIDPRN PRN PRN Reason: Dry Skin Morphine Sulfate (Ms Contin) 30 mg PO Q8H PRN PRN Reason: Pain Nitroglycerin (Nitrostat) 0.4 mg SL Q5MIN [facility] Ondansetron HCl (Zofran) 4 mg IVP Q6H PRN PRN Reason: Nausea/Vomiting Ondansetron HCl (Zofran Odt) 4 mg SL Q6H PRN PRN Reason: Nausea/Vomiting Potassium Chloride (K-Dur) 20 meq PO BID [facility] Last Admin: 08/17/18 08:42 Dose: 20 meq Rosuvastatin Calcium (Crestor) 40 mg PO HS [facility] Last Admin: 08/16/18 21:30 Dose: 40 mg Senna/Docusate Sodium (Senokot S) 2 tab PO BID PRN PRN Reason: Constipation Sodium Chloride (Flush - Normal Saline) 10 ml IVF Q12HR [facility] Last Admin: 08/17/18 08:42 Dose: 10 ml Sodium Chloride (Flush - Normal Saline) 10 ml IVF PRN PRN PRN Reason: Saline Flush Sodium Chloride ([place] Nasal [place] 0.65%) 0 ml EA NARE QIDPRN PRN PRN Reason: Nasal Congestion Throat Lozenges (Cepastat Lozenges) 1 micky PO Q2H PRN PRN Reason: Sore Throat Zolpidem Tartrate (Ambien) 5 mg PO HSPRN PRN PRN Reason: Insomnia
--- NOTE | 2018-08-17 12:31 | PRG ---
DATE OF SERVICE: 08/17/2018 SUBJECTIVE: A 67-year-old female being seen for hypercalcemia. The patient's calcium is improving. Denies any nausea, vomiting or chest pain. OBJECTIVE: GENERAL: The patient is awake and alert, in no acute distress. VITAL SIGNS: Afebrile, pulse , breathing 16, blood pressure 125/82. GENERAL APPEARANCE AND MENTAL STATUS: Fair. HEAD/NECK: Normocephalic. Atraumatic. EYES: EOMI. No deformity. EARS: Clear. No ulcers. NOSE: Intact. No lesions. MOUTH: Clear. No discharge. THROAT: Clear. No exudate. LUNGS: Clear. No crackles. CARDIAC: S1, S2. No rub. ABDOMEN: Benign. BS+. GENITALIA/RECTUM: Young absent. BACK/EXTREMITIES: Edema 0+. Ulcer-. NEUROLOGICAL: Alert and motor intact. SKIN: Rash-. Bruise-. LYMPHATICS: Edema-. Ulcer-. LABORATORY DATA: Hemoglobin 12. Sodium 145, potassium 3.5, creatinine 1.4. Calcium is 13.1. ASSESSMENT AND RECOMMENDATIONS: 1. Acute kidney injury . 2. Hypertension, stable. 3. Hypernatremia, improved. 4. Hypercalcemia, management per primary team. I will sign off on this patient. Please reconsult as needed.
--- NOTE | 2018-08-17 17:05 | SPC ---
ULTRASOUND GUIDED LEFT UPPER EXTREMITY PICC LINE PLACEMENT: 08/17/18 HISTORY: UTI. Patient needs nursing home IV antibiotics. TECHNIQUE: After informed consent was obtained, the patient was placed on the angiography table in the supine po sition. The left upper extremity was meticulously prepped and draped in the usual sterile fashion. Ap propriate access site was determined with ultrasound guidance. The skin and subcutaneous tissues were infiltrated with buffered 1% lidocaine for local anesthesia at the intended puncture site. The left brachial vein was accessed utilizing micropuncture technique an d concurrent real time ultrasound guidance. 5 Thai peel away sheath was placed. Catheter was measured and cut to the appropriate length. Tip of the catheter was positioned overlying the SVC. Approximately 6 mL of IV contrast was injected confirming placement of the PICC line within the SVC. The catheter was flushed and a dry sterile dressing was placed. The patient tolerated the procedure well without immediate complication. FLUOROSCOPY: Total fluoroscopy time 1.8 minutes. Total dose of 21,537 mGy*cm2. FINDINGS: Technically successful placement of a single lumen 5 Thai 40 cm PICC line via the left brachial vei n. Tip of the catheter overlies the SVC IMPRESSION: Technically successful left upper extremity PICC line placement. POS: [facility]
[2018-08-17] MEDS: Rosuvastatin 20 MG TAB PO SCH (21:44)
[2018-08-18] MEDS: cefTRIAXone\\ROCEPHIN 1 GM in Sodium Chloride 0.9% 100 ML IVPB SCH (02:56)
[2018-08-18] MEDS: 1/2 NS w/KCL 20 mEq 1,000 ML IV SCH ×3 (02:56→19:20)
[2018-08-18] MEDS: Furosemide 20 MG/2 ML VIAL SLOW IVP SCH ×2 (05:56→15:13)
[2018-08-18 07:59] LABS: Anion Gap 12 mmol/L (10-20); BUN (Urea Nitrogen) 25 mg/dL (9.8-20.1); BUN/Creatinine Ratio 17.24; Calc. Creatinine Clearance 59 mL/min (70-130); Calcium 11.6 mg/dL (7.8-10.44); Carbon Dioxide 22 mmol/L (23-31); Chloride 114 mmol/L (98-107); Estimated GFR-MDRD 43; Glucose 143 mg/dL (80-115); Potassium 3.9 mmol/L (3.5-5.1); Sodium 144 mmol/L (136-145)
[2018-08-18 08:03] LABS: Phosphorus 1.7 mg/dL (2.3-4.7)
[2018-08-18 08:29] LABS: #Eosinphils 0.2 thou/uL (0.0-0.7); #Monocytes 1.3 thou/uL (0.11-0.59); #Neutrophils 12.4 thou/uL (1.40-6.50); %Basophils 0.1 % (0.0-1.0); %Eosinophils 1.6 % (0.0-10.0); %Monocytes 8.4 % (0.0-10.0); Hemoglobin 11.7 g/dL (12.0-16.0); Mean Corpuscular HGB CONC 29.5 g/dL (32.0-36.0); Mean Corpuscular Hemoglobin 25.4 pg (27.0-31.0); Mean Corpuscular Volume 86.2 fL (78.0-98.0); Platelet Count 283 thou/uL (130-400); RBC Distribution Width 15.8 % (11.5-14.5); Red Blood Cell (RBC) Count 4.62 mill/uL (4.20-5.40); White Blood Cell (WBC) Count 14.9 thou/uL (4.8-10.8)
[2018-08-18 08:30] LABS: Polychromasia SLIGHT = 2-3 cells (100X) (0-2/hpf)
[2018-08-18] MEDS: Bupropion 150 MG SR TAB PO SCH ×2 (08:47→20:27)
[2018-08-18] MEDS: Heparin 5,000 UNITS/ML VIAL SC SCH ×3 (08:47→20:28)
[2018-08-18] MEDS: Clopidogrel Bisulfate 75 MG TAB PO SCH (08:47)
[2018-08-18] MEDS: Famotidine/PF 20 mg/2ml Vial SLOW IVP SCH ×2 (08:47→20:28)
[2018-08-18] MEDS: Isosorbide Mononitrate 20 MG TAB PO SCH (08:48)
[2018-08-18] MEDS: Amlodipine 10 MG TAB PO SCH (08:48)
[2018-08-18] MEDS: Doxepin HCl 25 MG CAP PO SCH (08:48)
[2018-08-18] MEDS: Potassium Chloride 20 MEQ TAB PO SCH ×2 (08:48→20:27)
[2018-08-18] MEDS: cloNIDine 0.2 MG TAB PO SCH ×2 (08:48→20:28)
[2018-08-18] MEDS ORDERED: Sodium Phosphate 60 MEQ/15 ML VIAL IVPB SCH (09:30)
[2018-08-18] MEDS ORDERED: Sodium Phosphate 30 MEQ in Sodium Chloride 0.9% 250 ML 250 ML IVPB SCH (10:00)
--- NOTE | 2018-08-18 10:01 | PDOC.PN ---
- Subjective Encounter Start Date: 08/18/18 Encounter Start Time: 08:10 pt is confused, she is more alert, no fever, weak Patient seen and examined. No overnight events - Objective Resuscitation Status: Resuscitation Status FULL:Full Resuscitation MAR Reviewed: Yes Vital Signs & Weight: Vital Signs (12 hours) Temp Pulse Resp BP Pulse Ox 08/18/18 07:45 97.2 F L 77 18 161/74 H 98 08/18/18 04:00 98.3 F 76 20 144/84 H 99 Weight Weight 220 lb 7 oz I&O: 08/17/18 08/18/18 08/19/18 06:59 06:59 06:59 Intake Total 3150 1495 Balance 3150 1495 Result Diagrams: 08/18/18 07:29 08/18/18 07:29 Additional Labs: Accuchecks 08/18/18 08/17/18 08/17/18 05:23 20:42 17:01 POC Glucose 133 H 141 H 116 H 08/17/18 10:57 POC Glucose 129 H EKG Reviewed by me: Yes Phys Exam - Physical Examination Constitutional: NAD HEENT: PERRLA, moist MMs, sclera anicteric Neck: no JVD, supple Respiratory: no wheezing, no rales, no rhonchi Cardiovascular: RRR, no significant murmur, no rub Gastrointestinal: soft, non-tender, no distention, positive bowel sounds Musculoskeletal: no edema, pulses present Neurological: non-focal, normal sensation Lymphatic: no nodes Psychiatric: normal affect Skin: no rash, normal turgor Dx/Plan (1) Acute kidney failure Status: Acute Comment: improving with IVF (2) Acute metabolic encephalopathy Code(s): G93.41 - METABOLIC ENCEPHALOPATHY Status: Acute Comment: improving with improvement in electrolytes (3) Hypercalcemia of malignancy Code(s): E83.52 - HYPERCALCEMIA Status: Acute Comment: improving slowly (4) Hypokalemia Code(s): E87.6 - HYPOKALEMIA Status: Acute Comment: corrected (5) Lung cancer Code(s): C34.90 - MALIGNANT NEOPLASM OF UNSP PART OF UNSP BRONCHUS OR LUNG Status: Acute (6) Vitamin D deficiency Code(s): E55.9 - VITAMIN D DEFICIENCY, UNSPECIFIED Status: Acute Comment: on supplement (7) Anxiety and depression Code(s): F41.9 - ANXIETY DISORDER, UNSPECIFIED; F32.9 - MAJOR DEPRESSIVE DISORDER, SINGLE EPISODE, UNSPECIFIED Status: Chronic (8) Diabetes type 2, controlled Code(s): E11.9 - TYPE 2 DIABETES MELLITUS WITHOUT COMPLICATIONS Status: Chronic (9) Dyslipidemia Code(s): E78.5 - HYPERLIPIDEMIA, UNSPECIFIED Status: Chronic (10) GERD (gastroesophageal reflux disease) Code(s): K21.9 - GASTRO-ESOPHAGEAL REFLUX DISEASE WITHOUT ESOPHAGITIS Status: Chronic (11) Hypertension Code(s): I10 - ESSENTIAL (PRIMARY) HYPERTENSION Status: Chronic (12) Obesity (BMI 30-39.9) Code(s): E66.9 - OBESITY, UNSPECIFIED Status: Chronic (13) Hypomagnesemia Code(s): E83.42 - HYPOMAGNESEMIA Status: Acute Comment: corrected (14) Leucocytosis Code(s): D72.829 - ELEVATED WHITE BLOOD CELL COUNT, UNSPECIFIED Status: Acute (15) Hypophosphatemia Code(s): E83.39 - OTHER DISORDERS OF PHOSPHORUS METABOLISM Status: Acute - 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, continue antibiotics, 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 * follow up on send out test result Review of Systems - Review of Systems Other: not reliable with pt due to her level of cognitive status - Medications/Allergies Allergies/Adverse Reactions: Allergies Allergy/AdvReac Type Severity Reaction Status Date / Time No Known Allergies Allergy Unverified 08/14/18 23:52 Medications: Current Medications Acetaminophen (Tylenol) 500 mg PO Q6H PRN PRN Reason: Mild Pain (1-3) Hydrocodone Bitart/Acetaminophen ([place] 5/325) 1 tab PO Q4H PRN PRN Reason: Moderate Pain (4-6) Amlodipine Besylate (Norvasc) 10 mg PO DAILY [facility] Last Admin: 08/18/18 08:48 Dose: 10 mg Artificial Tears (Tears Naturale) 2 drop EA EYE PRN PRN PRN Reason: Dry Eyes Bisacodyl (Dulcolax) 10 mg PO DAILYPRN PRN PRN Reason: Constipation Bisacodyl (Dulcolax) 10 mg ND DAILYPRN PRN PRN Reason: Constipation Bupropion HCl (Wellbutrin Sr) 150 mg PO BID [facility] Last Admin: 08/18/18 08:47 Dose: 150 mg Clonidine (Catapres) 0.2 mg PO BID [facility] Last Admin: 08/18/18 08:48 Dose: 0.2 mg Clonidine (Catapres) 0.1 mg PO Q4H PRN PRN Reason: SBP Greater Than 170 Clopidogrel Bisulfate (Plavix) 75 mg PO DAILY [facility] Last Admin: 08/18/18 08:47 Dose: 75 mg Dextrose/Water (Dextrose 50%) 25 gm SLOW IVP PRN PRN PRN Reason: Hypoglycemia Doxepin HCl (Sinequan) 50 mg PO DAILY [facility] Last Admin: 08/18/18 08:48 Dose: 50 mg Famotidine (Pepcid) 20 mg SLOW IVP Q12HR [facility] Last Admin: 08/18/18 08:47 Dose: 20 mg Furosemide (Lasix) 20 mg SLOW IVP 0600,1400 [facility] Last Admin: 08/18/18 05:56 Dose: 20 mg Glucagon (Glucagon) 1 mg IM PRN PRN PRN Reason: Hypoglycemia Guaifenesin (Robitussin Sf) 200 mg PO Q4H PRN PRN Reason: Cough Heparin Sodium (Porcine) (Heparin) 5,000 units SC TID [facility] Last Admin: 08/18/18 08:47 Dose: 5,000 units Hydralazine HCl (Apresoline) 10 mg SLOW IVP Q4H PRN PRN Reason: SBP Greater Than 170 Last Admin: 08/15/18 13:22 Dose: 10 mg Ceftriaxone Sodium 1 gm/ (Sodium Chloride) 100 mls @ 200 mls/hr IVPB Q24HR [facility] Last Admin: 08/18/18 02:56 Dose: 100 mls Potassium Chloride/Sodium Chloride (1/2 Ns W/Kcl 20 Meq) 1,000 mls @ 125 mls/ hr IV .Q8H [facility] Last Admin: 08/18/18 02:56 Dose: 1,000 mls Dextrose/Water (D5w) 1,000 mls @ 0 mls/hr IV .Q0M PRN PRN Reason: Hypoglycemia Sodium Phosphate 30 meq/ (Sodium Chloride) 257.5 mls @ 64.375 mls/hr IVPB 1000 [facility] Stop: 08/18/18 13:59 Insulin Human Lispro (Humalog) 0 units SC .MODERATE SLIDING SC PRN PRN Reason: Moderate Correctional Scale Insulin Human Lispro (Humalog) 0 units SC .BEDTIME SLIDING SC PRN PRN Reason: Bedtime Correctional Scale Isosorbide Mononitrate (Ismo) 20 mg PO DAILY [facility] Last Admin: 08/18/18 08:48 Dose: 20 mg Loperamide HCl (Imodium) 2 mg PO PRN PRN PRN Reason: Diarrhea/Loose Stools Loratadine (Claritin) 10 mg PO DAILYPRN PRN PRN Reason: Sinus Symptoms Mineral Oil/White Petrolatum (Eucerin Cream) 0 gm TOP BIDPRN PRN PRN Reason: Dry Skin Morphine Sulfate (Ms Contin) 30 mg PO Q8H PRN PRN Reason: Pain Nitroglycerin (Nitrostat) 0.4 mg SL Q5MIN [facility] Ondansetron HCl (Zofran) 4 mg IVP Q6H PRN PRN Reason: Nausea/Vomiting Ondansetron HCl (Zofran Odt) 4 mg SL Q6H PRN PRN Reason: Nausea/Vomiting Potassium Chloride (K-Dur) 20 meq PO BID [facility] Last Admin: 08/18/18 08:48 Dose: 20 meq Rosuvastatin Calcium (Crestor) 40 mg PO HS [facility] Last Admin: 08/17/18 21:44 Dose: 40 mg Senna/Docusate Sodium (Senokot S) 2 tab PO BID PRN PRN Reason: Constipation Sodium Chloride (Flush - Normal Saline) 10 ml IVF Q12HR [facility] Last Admin: 08/18/18 09:00 Dose: 10 ml Sodium Chloride (Flush - Normal Saline) 10 ml IVF PRN PRN PRN Reason: Saline Flush Sodium Chloride ([place] Nasal [place] 0.65%) 0 ml EA NARE QIDPRN PRN PRN Reason: Nasal Congestion Throat Lozenges (Cepastat Lozenges) 1 micky PO Q2H PRN PRN Reason: Sore Throat Zolpidem Tartrate (Ambien) 5 mg PO HSPRN PRN PRN Reason: Insomnia
[2018-08-18 15:26] LABS: Reference Lab Name LABCORP
[2018-08-18] MEDS ORDERED: Heparin 1,000 UNITS/ML VIAL ONE (17:51)
[2018-08-18] MEDS: Rosuvastatin 20 MG TAB PO SCH (20:27)
[2018-08-19] MEDS: cefTRIAXone\\ROCEPHIN 1 GM in Sodium Chloride 0.9% 100 ML IVPB SCH (02:41)
[2018-08-19] MEDS: Furosemide 20 MG/2 ML VIAL SLOW IVP SCH ×2 (06:10→15:30)
[2018-08-19] MEDS: 1/2 NS w/KCL 20 mEq 1,000 ML IV SCH ×2 (07:08→13:08)
[2018-08-19] MEDS: HumaLOG 300 UNITS/3 ML VIAL SC PRN ×3 (07:19→17:28)
[2018-08-19 08:18] LABS: Anion Gap 10 mmol/L (10-20); BUN (Urea Nitrogen) 16 mg/dL (9.8-20.1); BUN/Creatinine Ratio 11.59; Calc. Creatinine Clearance 62 mL/min (70-130); Calcium 10.2 mg/dL (7.8-10.44); Carbon Dioxide 21 mmol/L (23-31); Chloride 111 mmol/L (98-107); Estimated GFR-MDRD 46; Glucose 156 mg/dL (80-115); Sodium 138 mmol/L (136-145)
[2018-08-19 08:23] LABS: Phosphorus 1.6 mg/dL (2.3-4.7)
[2018-08-19 08:45] LABS: #Eosinphils 0.5 thou/uL (0.0-0.7); #Lymphocytes 0.9 thou/uL (1.20-3.40); #Neutrophils 11.2 thou/uL (1.40-6.50); %Eosinophils 3.5 % (0.0-10.0); %Lymphocytes 6.9 % (21.0-51.0); %Monocytes 7.4 % (0.0-10.0); %Neutrophils 82.2 % (42.0-75.0); Hemoglobin 11.8 g/dL (12.0-16.0); MDiff Complete? YES; Mean Corpuscular HGB CONC 29.3 g/dL (32.0-36.0); Mean Corpuscular Hemoglobin 25.3 pg (27.0-31.0); Mean Corpuscular Volume 86.6 fL (78.0-98.0); Mean Platelet Volume 9.7 fL (7.4-10.4); PLT Morphology Comment Appears Adequate; Platelet Count 234 thou/uL (130-400); Polychromasia SLIGHT = 2-3 cells (100X) (0-2/hpf); RBC Distribution Width 15.8 % (11.5-14.5); Red Blood Cell (RBC) Count 4.66 mill/uL (4.20-5.40); White Blood Cell (WBC) Count 13.6 thou/uL (4.8-10.8)
[2018-08-19] MEDS: Clopidogrel Bisulfate 75 MG TAB PO SCH (08:54)
[2018-08-19] MEDS: Famotidine/PF 20 mg/2ml Vial SLOW IVP SCH (08:54)
[2018-08-19] MEDS: Potassium Chloride 20 MEQ TAB PO SCH ×2 (08:54→22:02)
[2018-08-19] MEDS: Amlodipine 10 MG TAB PO SCH (08:54)
[2018-08-19] MEDS: cloNIDine 0.2 MG TAB PO SCH ×2 (08:54→22:02)
[2018-08-19] MEDS: Isosorbide Mononitrate 20 MG TAB PO SCH (08:55)
[2018-08-19] MEDS: Bupropion 150 MG SR TAB PO SCH ×2 (08:55→22:02)
[2018-08-19] MEDS: Heparin 5,000 UNITS/ML VIAL SC SCH ×3 (08:55→22:03)
[2018-08-19] MEDS: Doxepin HCl 25 MG CAP PO SCH (08:56)
--- NOTE | 2018-08-19 10:03 | PDOC.PN ---
- Subjective Encounter Start Date: 08/19/18 Encounter Start Time: 08:00 Patient seen and examined. No new complaints. No overnight events - Objective Resuscitation Status: Resuscitation Status FULL:Full Resuscitation MAR Reviewed: Yes Vital Signs & Weight: Vital Signs (12 hours) Temp Pulse Resp BP BP Pulse Ox 08/19/18 08:54 76 144/84 H 08/19/18 07:00 97.3 F L 76 20 144/84 H 96 08/19/18 03:59 98.2 F 76 18 138/76 95 08/19/18 00:00 98 F 77 20 129/72 94 L Weight Weight 220 lb 7 oz I&O: 08/18/18 08/19/18 08/20/18 06:59 06:59 06:59 Intake Total 1495 1800 1825 Balance 1495 1800 1825 Result Diagrams: 08/19/18 07:49 08/19/18 07:49 Additional Labs: Accuchecks 08/19/18 08/18/18 08/18/18 05:47 20:58 17:04 POC Glucose 171 H 143 H 175 H 08/18/18 10:59 POC Glucose 194 H Phys Exam - Physical Examination Constitutional: NAD HEENT: PERRLA, moist MMs, sclera anicteric, oral pharynx no lesions Neck: no JVD, supple Respiratory: no wheezing, no rales, no rhonchi Cardiovascular: RRR, no significant murmur, no rub Gastrointestinal: soft, non-tender, no distention, positive bowel sounds Musculoskeletal: no edema, pulses present Neurological: non-focal, normal sensation Psychiatric: normal affect, A&O x 3 Skin: no rash, normal turgor Dx/Plan (1) Acute kidney failure Status: Acute Comment: improving with IVF (2) Acute metabolic encephalopathy Code(s): G93.41 - METABOLIC ENCEPHALOPATHY Status: Acute Comment: improving with improvement in electrolytes (3) Hypercalcemia of malignancy Code(s): E83.52 - HYPERCALCEMIA Status: Acute Comment: improving slowly (4) Hypokalemia Code(s): E87.6 - HYPOKALEMIA Status: Acute Comment: corrected (5) Lung cancer Code(s): C34.90 - MALIGNANT NEOPLASM OF UNSP PART OF UNSP BRONCHUS OR LUNG Status: Acute (6) Vitamin D deficiency Code(s): E55.9 - VITAMIN D DEFICIENCY, UNSPECIFIED Status: Acute Comment: on supplement (7) Anxiety and depression Code(s): F41.9 - ANXIETY DISORDER, UNSPECIFIED; F32.9 - MAJOR DEPRESSIVE DISORDER, SINGLE EPISODE, UNSPECIFIED Status: Chronic (8) Diabetes type 2, controlled Code(s): E11.9 - TYPE 2 DIABETES MELLITUS WITHOUT COMPLICATIONS Status: Chronic (9) Dyslipidemia Code(s): E78.5 - HYPERLIPIDEMIA, UNSPECIFIED Status: Chronic (10) GERD (gastroesophageal reflux disease) Code(s): K21.9 - GASTRO-ESOPHAGEAL REFLUX DISEASE WITHOUT ESOPHAGITIS Status: Chronic (11) Hypertension Code(s): I10 - ESSENTIAL (PRIMARY) HYPERTENSION Status: Chronic (12) Obesity (BMI 30-39.9) Code(s): E66.9 - OBESITY, UNSPECIFIED Status: Chronic (13) Hypomagnesemia Code(s): E83.42 - HYPOMAGNESEMIA Status: Acute Comment: corrected (14) Leucocytosis Code(s): D72.829 - ELEVATED WHITE BLOOD CELL COUNT, UNSPECIFIED Status: Acute (15) Hypophosphatemia Code(s): E83.39 - OTHER DISORDERS OF PHOSPHORUS METABOLISM Status: Acute - 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, 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 Review of Systems - Review of Systems ENT: negative: Ear Pain, Ear Discharge, Nose Pain, Nose Discharge, Nose Congestion, Mouth Pain, Mouth Swelling, Throat Pain, Throat Swelling, Other Respiratory: negative: Cough, Dry, Shortness of Breath, Hemoptysis, SOB with Excertion, Pleuritic Pain, Sputum, Wheezing Cardiovascular: negative: chest pain, palpitations, orthopnea, paroxysmal nocturnal dyspnea, edema, light headedness, other Gastrointestinal: negative: Nausea, Vomiting, Abdominal Pain, Diarrhea, Constipation, Melena, Hematochezia, Other Genitourinary: negative: Dysuria, Frequency, Incontinence, Hematuria, Retention , Other Musculoskeletal: negative: Neck Pain, Shoulder Pain, Arm Pain, Back Pain, Hand Pain, Leg Pain, Foot Pain, Other Skin: negative: Rash, Lesions, Carlos, Bruising, Other - Medications/Allergies Allergies/Adverse Reactions: Allergies Allergy/AdvReac Type Severity Reaction Status Date / Time No Known Allergies Allergy Unverified 08/14/18 23:52 Medications: Current Medications Acetaminophen (Tylenol) 500 mg PO Q6H PRN PRN Reason: Mild Pain (1-3) Hydrocodone Bitart/Acetaminophen ([place] 5/325) 1 tab PO Q4H PRN PRN Reason: Moderate Pain (4-6) Amlodipine Besylate (Norvasc) 10 mg PO DAILY [facility] Last Admin: 08/19/18 08:54 Dose: 10 mg Artificial Tears (Tears Naturale) 2 drop EA EYE PRN PRN PRN Reason: Dry Eyes Bisacodyl (Dulcolax) 10 mg PO DAILYPRN PRN PRN Reason: Constipation Bisacodyl (Dulcolax) 10 mg [place] DAILYPRN PRN PRN Reason: Constipation Bupropion HCl (Wellbutrin Sr) 150 mg PO BID [facility] Last Admin: 08/19/18 08:55 Dose: 150 mg Clonidine (Catapres) 0.2 mg PO BID [facility] Last Admin: 08/19/18 08:54 Dose: 0.2 mg Clonidine (Catapres) 0.1 mg PO Q4H PRN PRN Reason: SBP Greater Than 170 Clopidogrel Bisulfate (Plavix) 75 mg PO DAILY [facility] Last Admin: 08/19/18 08:54 Dose: 75 mg Dextrose/Water (Dextrose 50%) 25 gm SLOW IVP PRN PRN PRN Reason: Hypoglycemia Doxepin HCl (Sinequan) 50 mg PO DAILY [facility] Last Admin: 08/19/18 08:56 Dose: 50 mg Famotidine (Pepcid) 20 mg SLOW IVP Q12HR [facility] Last Admin: 08/19/18 08:54 Dose: 20 mg Furosemide (Lasix) 20 mg SLOW IVP 0600,1400 [facility] Last Admin: 08/19/18 06:10 Dose: 20 mg Glucagon (Glucagon) 1 mg IM PRN PRN PRN Reason: Hypoglycemia Guaifenesin (Robitussin Sf) 200 mg PO Q4H PRN PRN Reason: Cough Heparin Sodium (Porcine) (Heparin) 5,000 units SC TID [facility] Last Admin: 08/19/18 08:55 Dose: 5,000 units Hydralazine HCl (Apresoline) 10 mg SLOW IVP Q4H PRN PRN Reason: SBP Greater Than 170 Last Admin: 08/15/18 13:22 Dose: 10 mg Ceftriaxone Sodium 1 gm/ (Sodium Chloride) 100 mls @ 200 mls/hr IVPB Q24HR [facility] Last Admin: 08/19/18 02:41 Dose: 100 mls Potassium Chloride/Sodium Chloride (1/2 Ns W/Kcl 20 Meq) 1,000 mls @ 125 mls/ hr IV .Q8H [facility] Last Admin: 08/19/18 07:08 Dose: Not Given Dextrose/Water (D5w) 1,000 mls @ 0 mls/hr IV .Q0M PRN PRN Reason: Hypoglycemia Insulin Human Lispro (Humalog) 0 units [place] .MODERATE SLIDING SC PRN PRN Reason: Moderate Correctional Scale Last Admin: 08/19/18 07:19 Dose: 2 unit Insulin Human Lispro (Humalog) 0 units [place] .BEDTIME SLIDING SC PRN PRN Reason: Bedtime Correctional Scale Isosorbide Mononitrate (Ismo) 20 mg PO DAILY [facility] Last Admin: 08/19/18 08:55 Dose: 20 mg Loperamide HCl (Imodium) 2 mg PO PRN PRN PRN Reason: Diarrhea/Loose Stools Loratadine (Claritin) 10 mg PO DAILYPRN PRN PRN Reason: Sinus Symptoms Mineral Oil/White Petrolatum (Eucerin Cream) 0 gm TOP BIDPRN PRN PRN Reason: Dry Skin Morphine Sulfate (Ms Contin) 30 mg PO Q8H PRN PRN Reason: Pain Nitroglycerin (Nitrostat) 0.4 mg SL Q5MIN [facility] Ondansetron HCl (Zofran) 4 mg IVP Q6H PRN PRN Reason: Nausea/Vomiting Ondansetron HCl (Zofran Odt) 4 mg SL Q6H PRN PRN Reason: Nausea/Vomiting Potassium Chloride (K-Dur) 20 meq PO BID [facility] Last Admin: 08/19/18 08:54 Dose: 20 meq Rosuvastatin Calcium (Crestor) 40 mg PO HS [facility] Last Admin: 08/18/18 20:27 Dose: 40 mg Senna/Docusate Sodium (Senokot S) 2 tab PO BID PRN PRN Reason: Constipation Sodium Chloride (Flush - Normal Saline) 10 ml IVF Q12HR [facility] Last Admin: 08/19/18 08:56 Dose: 10 ml Sodium Chloride (Flush - Normal Saline) 10 ml IVF PRN PRN PRN Reason: Saline Flush Sodium Chloride ([place] Nasal [place] 0.65%) 0 ml EA NARE QIDPRN PRN PRN Reason: Nasal Congestion Throat Lozenges (Cepastat Lozenges) 1 micky PO Q2H PRN PRN Reason: Sore Throat Zolpidem Tartrate (Ambien) 5 mg PO HSPRN PRN PRN Reason: Insomnia
[2018-08-19] MEDS ORDERED: Sodium Phosphate 60 MEQ/15 ML VIAL IVPB SCH (10:30)
[2018-08-19] MEDS ORDERED: SODIUM CHLORIDE 0.9% IVPB SCH (11:30)
[2018-08-19] MEDS ORDERED: SODIUM PHOSPHATE IVPB SCH (11:30)
[2018-08-19 15:30] LABS: A/G Ratio 0.6 (0.7-1.7); Albumin 2.7 g/dL (2.9-4.4); Alpha 1 0.4 g/dL (0.0-0.4); Alpha 2 0.8 g/dL (0.4-1.0); Beta 1.2 g/dL (0.7-1.3); Gamma 1.8 g/dL (0.4-1.8); Globulin, Total 4.2 g/dL (2.2-3.9); M-Spike Not Observed g/dL (Not Observed); Protein Electrophoresis Intrp Note: (.)
[2018-08-19] MEDS: Famotidine 20 MG TAB PO SCH (22:02)
[2018-08-19] MEDS: Rosuvastatin 20 MG TAB PO SCH (22:02)
[2018-08-20] MEDS: cefTRIAXone\\ROCEPHIN 1 GM in Sodium Chloride 0.9% 100 ML IVPB SCH (02:55)
[2018-08-20] MEDS: 1/2 NS w/KCL 20 mEq 1,000 ML IV SCH ×3 (02:55→21:26)
[2018-08-20 05:56] LABS: #Eosinphils 0.6 thou/uL (0.0-0.7); #Lymphocytes 0.9 thou/uL (1.20-3.40); #Neutrophils 10.4 thou/uL (1.40-6.50); %Basophils 0.1 % (0.0-1.0); %Eosinophils 4.4 % (0.0-10.0); %Lymphocytes 7.3 % (21.0-51.0); %Monocytes 7.5 % (0.0-10.0); %Neutrophils 80.6 % (42.0-75.0); Hemoglobin 11.1 g/dL (12.0-16.0); Mean Corpuscular HGB CONC 29.6 g/dL (32.0-36.0); Mean Corpuscular Hemoglobin 25.4 pg (27.0-31.0); Mean Corpuscular Volume 85.7 fL (78.0-98.0); Mean Platelet Volume 9.6 fL (7.4-10.4); Platelet Count 222 thou/uL (130-400); RBC Distribution Width 15.8 % (11.5-14.5); Red Blood Cell (RBC) Count 4.38 mill/uL (4.20-5.40); White Blood Cell (WBC) Count 12.9 thou/uL (4.8-10.8)
[2018-08-20] MEDS: Furosemide 20 MG/2 ML VIAL SLOW IVP SCH ×2 (06:02→16:08)
[2018-08-20] MEDS: HumaLOG 300 UNITS/3 ML VIAL SC PRN ×2 (06:15→16:08)
[2018-08-20 06:18] LABS: Anion Gap 13 mmol/L (10-20); BUN (Urea Nitrogen) 13 mg/dL (9.8-20.1); Calc. Creatinine Clearance 64 mL/min (70-130); Calcium 9.1 mg/dL (7.8-10.44); Carbon Dioxide 18 mmol/L (23-31); Chloride 108 mmol/L (98-107); Estimated GFR-MDRD 46; Glucose 174 mg/dL (80-115); Potassium 3.7 mmol/L (3.5-5.1); Sodium 135 mmol/L (136-145)
[2018-08-20] MEDS ORDERED: Potassium Phosphate 30 MMOL in Sodium Chloride 0.9% 500 ML IVPB SCH (07:00)
[2018-08-20] MEDS: Amlodipine 10 MG TAB PO SCH (08:15)
[2018-08-20] MEDS: Heparin 5,000 UNITS/ML VIAL SC SCH ×3 (08:15→21:20)
[2018-08-20] MEDS: Famotidine 20 MG TAB PO SCH ×2 (08:16→21:21)
[2018-08-20] MEDS: Bupropion 150 MG SR TAB PO SCH ×2 (08:16→21:20)
[2018-08-20] MEDS: Clopidogrel Bisulfate 75 MG TAB PO SCH (08:16)
[2018-08-20] MEDS: Potassium Chloride 20 MEQ TAB PO SCH ×2 (08:16→21:21)
[2018-08-20] MEDS: cloNIDine 0.2 MG TAB PO SCH ×2 (08:16→21:21)
[2018-08-20] MEDS: Isosorbide Mononitrate 20 MG TAB PO SCH (08:16)
[2018-08-20] MEDS: Doxepin HCl 25 MG CAP PO SCH (08:18)
--- NOTE | 2018-08-20 08:41 | PDOC.PN ---
- Subjective Encounter Start Date: 08/20/18 Encounter Start Time: 07:50 Patient seen and examined. No new complaints. No overnight events - Objective Resuscitation Status: Resuscitation Status FULL:Full Resuscitation MAR Reviewed: Yes Vital Signs & Weight: Vital Signs (12 hours) Temp Pulse Resp BP BP Pulse Ox 08/20/18 08:16 154/72 H 08/20/18 08:15 77 154/72 H 08/20/18 07:16 98.3 F 77 18 154/77 H 95 08/20/18 03:56 98.5 F 77 16 146/76 H 95 08/20/18 03:55 96 08/20/18 00:18 97.6 F 97 16 128/79 96 08/19/18 22:02 156/81 H Weight Weight 231 lb 2 oz I&O: 08/19/18 08/20/18 08/21/18 06:59 06:59 06:59 Intake Total 1800 4305 Output Total 500 Balance 1800 3805 Result Diagrams: 08/20/18 05:25 08/20/18 05:25 Additional Labs: Accuchecks 08/20/18 08/19/18 08/19/18 05:41 20:51 15:52 POC Glucose 171 H 167 H 163 H 08/19/18 11:25 POC Glucose 202 H Phys Exam - Physical Examination Constitutional: NAD HEENT: PERRLA, moist MMs, sclera anicteric Neck: no JVD, supple Respiratory: no wheezing, no rales, no rhonchi Cardiovascular: RRR, no significant murmur, no rub Gastrointestinal: soft, non-tender, no distention, positive bowel sounds Musculoskeletal: no edema, pulses present Neurological: non-focal, normal sensation Lymphatic: no nodes Psychiatric: normal affect Skin: no rash, normal turgor Dx/Plan (1) Acute kidney failure Status: Acute Comment: improving with IVF (2) Acute metabolic encephalopathy Code(s): G93.41 - METABOLIC ENCEPHALOPATHY Status: Acute Comment: improving with improvement in electrolytes (3) Hypercalcemia of malignancy Code(s): E83.52 - HYPERCALCEMIA Status: Acute Comment: improving slowly (4) Hypokalemia Code(s): E87.6 - HYPOKALEMIA Status: Acute Comment: corrected (5) Lung cancer Code(s): C34.90 - MALIGNANT NEOPLASM OF UNSP PART OF UNSP BRONCHUS OR LUNG Status: Acute (6) Vitamin D deficiency Code(s): E55.9 - VITAMIN D DEFICIENCY, UNSPECIFIED Status: Acute Comment: on supplement (7) Anxiety and depression Code(s): F41.9 - ANXIETY DISORDER, UNSPECIFIED; F32.9 - MAJOR DEPRESSIVE DISORDER, SINGLE EPISODE, UNSPECIFIED Status: Chronic (8) Diabetes type 2, controlled Code(s): E11.9 - TYPE 2 DIABETES MELLITUS WITHOUT COMPLICATIONS Status: Chronic (9) Dyslipidemia Code(s): E78.5 - HYPERLIPIDEMIA, UNSPECIFIED Status: Chronic (10) GERD (gastroesophageal reflux disease) Code(s): K21.9 - GASTRO-ESOPHAGEAL REFLUX DISEASE WITHOUT ESOPHAGITIS Status: Chronic (11) Hypertension Code(s): I10 - ESSENTIAL (PRIMARY) HYPERTENSION Status: Chronic (12) Obesity (BMI 30-39.9) Code(s): E66.9 - OBESITY, UNSPECIFIED Status: Chronic (13) Hypomagnesemia Code(s): E83.42 - HYPOMAGNESEMIA Status: Acute Comment: corrected (14) Leucocytosis Code(s): D72.829 - ELEVATED WHITE BLOOD CELL COUNT, UNSPECIFIED Status: Acute (15) Hypophosphatemia Code(s): E83.39 - OTHER DISORDERS OF PHOSPHORUS METABOLISM Status: Acute - 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, continue antibiotics, 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 Review of Systems - Review of Systems ENT: negative: Ear Pain, Ear Discharge, Nose Pain, Nose Discharge, Nose Congestion, Mouth Pain, Mouth Swelling, Throat Pain, Throat Swelling, Other Respiratory: negative: Cough, Dry, Shortness of Breath, Hemoptysis, SOB with Excertion, Pleuritic Pain, Sputum, Wheezing Cardiovascular: negative: chest pain, palpitations, orthopnea, paroxysmal nocturnal dyspnea, edema, light headedness, other Gastrointestinal: negative: Nausea, Vomiting, Abdominal Pain, Diarrhea, Constipation, Melena, Hematochezia, Other Genitourinary: negative: Dysuria, Frequency, Incontinence, Hematuria, Retention , Other Musculoskeletal: negative: Neck Pain, Shoulder Pain, Arm Pain, Back Pain, Hand Pain, Leg Pain, Foot Pain, Other - Medications/Allergies Allergies/Adverse Reactions: Allergies Allergy/AdvReac Type Severity Reaction Status Date / Time No Known Allergies Allergy Unverified 08/14/18 23:52 Medications: Current Medications Acetaminophen (Tylenol) 500 mg PO Q6H PRN PRN Reason: Mild Pain (1-3) Hydrocodone Bitart/Acetaminophen ([place] 5/325) 1 tab PO Q4H PRN PRN Reason: Moderate Pain (4-6) Amlodipine Besylate (Norvasc) 10 mg PO DAILY [facility] Last Admin: 08/20/18 08:15 Dose: 10 mg Artificial Tears (Tears Naturale) 2 drop EA EYE PRN PRN PRN Reason: Dry Eyes Bisacodyl (Dulcolax) 10 mg PO DAILYPRN PRN PRN Reason: Constipation Bisacodyl (Dulcolax) 10 mg [place] DAILYPRN PRN PRN Reason: Constipation Bupropion HCl (Wellbutrin Sr) 150 mg PO BID [facility] Last Admin: 08/20/18 08:16 Dose: 150 mg Clonidine (Catapres) 0.2 mg PO BID [facility] Last Admin: 08/20/18 08:16 Dose: 0.2 mg Clonidine (Catapres) 0.1 mg PO Q4H PRN PRN Reason: SBP Greater Than 170 Clopidogrel Bisulfate (Plavix) 75 mg PO DAILY [facility] Last Admin: 08/20/18 08:16 Dose: 75 mg Dextrose/Water (Dextrose 50%) 25 gm SLOW IVP PRN PRN PRN Reason: Hypoglycemia Doxepin HCl (Sinequan) 50 mg PO DAILY [facility] Last Admin: 08/20/18 08:18 Dose: 50 mg Famotidine (Pepcid) 20 mg PO BID [facility] Last Admin: 08/20/18 08:16 Dose: 20 mg Furosemide (Lasix) 20 mg SLOW IVP 0600,1400 [facility] Last Admin: 08/20/18 06:02 Dose: 20 mg Glucagon (Glucagon) 1 mg IM PRN PRN PRN Reason: Hypoglycemia Guaifenesin (Robitussin Sf) 200 mg PO Q4H PRN PRN Reason: Cough Heparin Sodium (Porcine) (Heparin) 5,000 units SC TID [facility] Last Admin: 08/20/18 08:15 Dose: 5,000 units Hydralazine HCl (Apresoline) 10 mg SLOW IVP Q4H PRN PRN Reason: SBP Greater Than 170 Last Admin: 08/15/18 13:22 Dose: 10 mg Ceftriaxone Sodium 1 gm/ (Sodium Chloride) 100 mls @ 200 mls/hr IVPB Q24HR [facility] Last Admin: 08/20/18 02:55 Dose: 100 mls Dextrose/Water (D5w) 1,000 mls @ 0 mls/hr IV .Q0M PRN PRN Reason: Hypoglycemia Potassium Chloride/Sodium Chloride (1/2 Ns W/Kcl 20 Meq) 1,000 mls @ 75 mls/hr IV .[id number] [facility] Last Admin: 08/20/18 02:55 Dose: 1,000 mls Potassium Phosphate 30 mmol/ (Sodium Chloride) 510 mls @ 83.3 mls/hr IVPB NOW [facility] Stop: 08/20/18 14:00 Insulin Human Lispro (Humalog) 0 units SC .MODERATE SLIDING SC PRN PRN Reason: Moderate Correctional Scale Last Admin: 08/20/18 06:15 Dose: 2 unit Insulin Human Lispro (Humalog) 0 units SC .BEDTIME SLIDING SC PRN PRN Reason: Bedtime Correctional Scale Isosorbide Mononitrate (Ismo) 20 mg PO DAILY [facility] Last Admin: 08/20/18 08:16 Dose: 20 mg Loperamide HCl (Imodium) 2 mg PO PRN PRN PRN Reason: Diarrhea/Loose Stools Loratadine (Claritin) 10 mg PO DAILYPRN PRN PRN Reason: Sinus Symptoms Mineral Oil/White Petrolatum (Eucerin Cream) 0 gm TOP BIDPRN PRN PRN Reason: Dry Skin Morphine Sulfate (Ms Contin) 30 mg PO Q8H PRN PRN Reason: Pain Nitroglycerin (Nitrostat) 0.4 mg SL Q5MIN [facility] Ondansetron HCl (Zofran) 4 mg IVP Q6H PRN PRN Reason: Nausea/Vomiting Ondansetron HCl (Zofran Odt) 4 mg SL Q6H PRN PRN Reason: Nausea/Vomiting Potassium Chloride (K-Dur) 20 meq PO BID [facility] Last Admin: 08/20/18 08:16 Dose: 20 meq Rosuvastatin Calcium (Crestor) 40 mg PO HS [facility] Last Admin: 08/19/18 22:02 Dose: 40 mg Senna/Docusate Sodium (Senokot S) 2 tab PO BID PRN PRN Reason: Constipation Sodium Chloride (Flush - Normal Saline) 10 ml IVF Q12HR [facility] Last Admin: 08/20/18 08:17 Dose: 10 ml Sodium Chloride (Flush - Normal Saline) 10 ml IVF PRN PRN PRN Reason: Saline Flush Sodium Chloride ([place] Nasal [place] 0.65%) 0 ml EA NARE QIDPRN PRN PRN Reason: Nasal Congestion Throat Lozenges (Cepastat Lozenges) 1 micky PO Q2H PRN PRN Reason: Sore Throat Zolpidem Tartrate (Ambien) 5 mg PO HSPRN PRN PRN Reason: Insomnia
[2018-08-20] MEDS: Rosuvastatin 20 MG TAB PO SCH (21:20)
[2018-08-21] MEDS: 1/2 NS w/KCL 20 mEq 1,000 ML IV SCH ×2 (01:20→11:47)
[2018-08-21] MEDS: cefTRIAXone\\ROCEPHIN 1 GM in Sodium Chloride 0.9% 100 ML IVPB SCH (01:31)
[2018-08-21] MEDS: HumaLOG 300 UNITS/3 ML VIAL SC PRN ×3 (06:16→18:24)
[2018-08-21] MEDS: Furosemide 20 MG/2 ML VIAL SLOW IVP SCH ×2 (06:16→15:44)
[2018-08-21] MEDS: Amlodipine 10 MG TAB PO SCH (09:29)
[2018-08-21] MEDS: Bupropion 150 MG SR TAB PO SCH ×2 (09:30→20:05)
[2018-08-21] MEDS: Clopidogrel Bisulfate 75 MG TAB PO SCH (09:30)
[2018-08-21] MEDS: cloNIDine 0.2 MG TAB PO SCH ×2 (09:30→19:54)
[2018-08-21] MEDS: Famotidine 20 MG TAB PO SCH ×2 (09:30→19:55)
[2018-08-21] MEDS: Potassium Chloride 20 MEQ TAB PO SCH ×2 (09:30→19:54)
[2018-08-21] MEDS: Doxepin HCl 25 MG CAP PO SCH (09:31)
--- NOTE | 2018-08-21 09:32 | PDOC.PN ---
- Subjective Encounter Start Date: 08/21/18 Encounter Start Time: 08:10 Patient seen and examined. No new complaints. No overnight events - Objective Resuscitation Status: Resuscitation Status FULL:Full Resuscitation MAR Reviewed: Yes Vital Signs & Weight: Vital Signs (12 hours) Temp Pulse Resp BP Pulse Ox 08/21/18 07:17 98.1 F 79 20 118/73 97 08/21/18 05:41 95 08/21/18 04:08 97.6 F 81 20 123/75 95 08/21/18 00:14 98.3 F 78 16 110/67 96 Weight Weight 225 lb 6 oz I&O: 08/20/18 08/21/18 08/22/18 06:59 06:59 06:59 Intake Total 4305 1400 Output Total 500 Balance 3805 1400 Result Diagrams: 08/20/18 05:25 08/20/18 05:25 Additional Labs: Accuchecks 08/21/18 08/20/18 08/20/18 05:31 20:42 15:58 POC Glucose 284 H 156 H 167 H 08/20/18 10:45 POC Glucose 158 H Phys Exam - Physical Examination Constitutional: NAD HEENT: PERRLA, moist MMs, sclera anicteric Neck: no JVD, supple Respiratory: no wheezing, no rales, no rhonchi Cardiovascular: RRR, no significant murmur, no rub Gastrointestinal: soft, non-tender, no distention, positive bowel sounds Musculoskeletal: no edema, pulses present Neurological: non-focal, normal sensation, moves all 4 limbs Psychiatric: normal affect Skin: no rash, normal turgor Dx/Plan (1) Acute kidney failure Status: Acute Comment: improving with IVF (2) Acute metabolic encephalopathy Code(s): G93.41 - METABOLIC ENCEPHALOPATHY Status: Acute Comment: improving with improvement in electrolytes (3) Hypercalcemia of malignancy Code(s): E83.52 - HYPERCALCEMIA Status: Acute Comment: improving slowly (4) Hypokalemia Code(s): E87.6 - HYPOKALEMIA Status: Acute Comment: corrected (5) Lung cancer Code(s): C34.90 - MALIGNANT NEOPLASM OF UNSP PART OF UNSP BRONCHUS OR LUNG Status: Acute (6) Vitamin D deficiency Code(s): E55.9 - VITAMIN D DEFICIENCY, UNSPECIFIED Status: Acute Comment: on supplement (7) Anxiety and depression Code(s): F41.9 - ANXIETY DISORDER, UNSPECIFIED; F32.9 - MAJOR DEPRESSIVE DISORDER, SINGLE EPISODE, UNSPECIFIED Status: Chronic (8) Diabetes type 2, controlled Code(s): E11.9 - TYPE 2 DIABETES MELLITUS WITHOUT COMPLICATIONS Status: Chronic (9) Dyslipidemia Code(s): E78.5 - HYPERLIPIDEMIA, UNSPECIFIED Status: Chronic (10) GERD (gastroesophageal reflux disease) Code(s): K21.9 - GASTRO-ESOPHAGEAL REFLUX DISEASE WITHOUT ESOPHAGITIS Status: Chronic (11) Hypertension Code(s): I10 - ESSENTIAL (PRIMARY) HYPERTENSION Status: Chronic (12) Obesity (BMI 30-39.9) Code(s): E66.9 - OBESITY, UNSPECIFIED Status: Chronic (13) Hypomagnesemia Code(s): E83.42 - HYPOMAGNESEMIA Status: Acute Comment: corrected (14) Leucocytosis Code(s): D72.829 - ELEVATED WHITE BLOOD CELL COUNT, UNSPECIFIED Status: Acute (15) Hypophosphatemia Code(s): E83.39 - OTHER DISORDERS OF PHOSPHORUS METABOLISM Status: Acute - 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, continue antibiotics, 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 Review of Systems - Review of Systems ENT: negative: Ear Pain, Ear Discharge, Nose Pain, Nose Discharge, Nose Congestion, Mouth Pain, Mouth Swelling, Throat Pain, Throat Swelling, Other Respiratory: negative: Cough, Dry, Shortness of Breath, Hemoptysis, SOB with Excertion, Pleuritic Pain, Sputum, Wheezing Cardiovascular: negative: chest pain, palpitations, orthopnea, paroxysmal nocturnal dyspnea, edema, light headedness, other Gastrointestinal: negative: Nausea, Vomiting, Abdominal Pain, Diarrhea, Constipation, Melena, Hematochezia, Other Genitourinary: negative: Dysuria, Frequency, Incontinence, Hematuria, Retention , Other Musculoskeletal: negative: Neck Pain, Shoulder Pain, Arm Pain, Back Pain, Hand Pain, Leg Pain, Foot Pain, Other - Medications/Allergies Allergies/Adverse Reactions: Allergies Allergy/AdvReac Type Severity Reaction Status Date / Time No Known Allergies Allergy Unverified 08/14/18 23:52 Medications: Current Medications Acetaminophen (Tylenol) 500 mg PO Q6H PRN PRN Reason: Mild Pain (1-3) Hydrocodone Bitart/Acetaminophen ([place] 5/325) 1 tab PO Q4H PRN PRN Reason: Moderate Pain (4-6) Amlodipine Besylate (Norvasc) 10 mg PO DAILY [facility] Last Admin: 08/21/18 09:29 Dose: Not Given Artificial Tears (Tears Naturale) 2 drop EA EYE PRN PRN PRN Reason: Dry Eyes Bisacodyl (Dulcolax) 10 mg PO DAILYPRN PRN PRN Reason: Constipation Bisacodyl (Dulcolax) 10 mg [place] DAILYPRN PRN PRN Reason: Constipation Bupropion HCl (Wellbutrin Sr) 150 mg PO BID [facility] Last Admin: 08/21/18 09:30 Dose: 150 mg Clonidine (Catapres) 0.2 mg PO BID [facility] Last Admin: 08/21/18 09:30 Dose: Not Given Clonidine (Catapres) 0.1 mg PO Q4H PRN PRN Reason: SBP Greater Than 170 Clopidogrel Bisulfate (Plavix) 75 mg PO DAILY [facility] Last Admin: 08/21/18 09:30 Dose: 75 mg Dextrose/Water (Dextrose 50%) 25 gm SLOW IVP PRN PRN PRN Reason: Hypoglycemia Doxepin HCl (Sinequan) 50 mg PO DAILY [facility] Last Admin: 08/21/18 09:31 Dose: 50 mg Famotidine (Pepcid) 20 mg PO BID [facility] Last Admin: 08/21/18 09:30 Dose: 20 mg Furosemide (Lasix) 20 mg SLOW IVP 0600,1400 [facility] Last Admin: 08/21/18 06:16 Dose: 20 mg Glucagon (Glucagon) 1 mg IM PRN PRN PRN Reason: Hypoglycemia Guaifenesin (Robitussin Sf) 200 mg PO Q4H PRN PRN Reason: Cough Heparin Sodium (Porcine) (Heparin) 5,000 units SC TID [facility] Last Admin: 08/20/18 21:20 Dose: 5,000 units Hydralazine HCl (Apresoline) 10 mg SLOW IVP Q4H PRN PRN Reason: SBP Greater Than 170 Last Admin: 08/15/18 13:22 Dose: 10 mg Ceftriaxone Sodium 1 gm/ (Sodium Chloride) 100 mls @ 200 mls/hr IVPB Q24HR [facility] Last Admin: 08/21/18 01:31 Dose: 100 mls Dextrose/Water (D5w) 1,000 mls @ 0 mls/hr IV .Q0M PRN PRN Reason: Hypoglycemia Potassium Chloride/Sodium Chloride (1/2 Ns W/Kcl 20 Meq) 1,000 mls @ 50 mls/hr IV .Q20H [facility] Insulin Human Lispro (Humalog) 0 units SC .MODERATE SLIDING SC PRN PRN Reason: Moderate Correctional Scale Last Admin: 08/21/18 06:16 Dose: 6 unit Insulin Human Lispro (Humalog) 0 units SC .BEDTIME SLIDING SC PRN PRN Reason: Bedtime Correctional Scale Isosorbide Mononitrate (Ismo) 20 mg PO DAILY [facility] Last Admin: 08/20/18 08:16 Dose: 20 mg Loperamide HCl (Imodium) 2 mg PO PRN PRN PRN Reason: Diarrhea/Loose Stools Loratadine (Claritin) 10 mg PO DAILYPRN PRN PRN Reason: Sinus Symptoms Mineral Oil/White Petrolatum (Eucerin Cream) 0 gm TOP BIDPRN PRN PRN Reason: Dry Skin Morphine Sulfate (Ms Contin) 30 mg PO Q8H PRN PRN Reason: Pain Nitroglycerin (Nitrostat) 0.4 mg SL Q5MIN [facility] Ondansetron HCl (Zofran) 4 mg IVP Q6H PRN PRN Reason: Nausea/Vomiting Ondansetron HCl (Zofran Odt) 4 mg SL Q6H PRN PRN Reason: Nausea/Vomiting Potassium Chloride (K-Dur) 20 meq PO BID [facility] Last Admin: 08/21/18 09:30 Dose: 20 meq Rosuvastatin Calcium (Crestor) 40 mg PO HS [facility] Last Admin: 08/20/18 21:20 Dose: 40 mg Senna/Docusate Sodium (Senokot S) 2 tab PO BID PRN PRN Reason: Constipation Sodium Chloride (Flush - Normal Saline) 10 ml IVF Q12HR [facility] Last Admin: 08/20/18 21:22 Dose: 10 ml Sodium Chloride (Flush - Normal Saline) 10 ml IVF PRN PRN PRN Reason: Saline Flush Sodium Chloride ([place] Nasal [place] 0.65%) 0 ml EA NARE QIDPRN PRN PRN Reason: Nasal Congestion Throat Lozenges (Cepastat Lozenges) 1 micky PO Q2H PRN PRN Reason: Sore Throat Zolpidem Tartrate (Ambien) 5 mg PO HSPRN PRN PRN Reason: Insomnia
[2018-08-21] MEDS: Heparin 5,000 UNITS/ML VIAL SC SCH ×3 (09:37→19:55)
[2018-08-21] MEDS: Isosorbide Mononitrate 20 MG TAB PO SCH (09:38)
[2018-08-21] MEDS: Rosuvastatin 20 MG TAB PO SCH (19:54)
[2018-08-22] MEDS: cefTRIAXone\\ROCEPHIN 1 GM in Sodium Chloride 0.9% 100 ML IVPB SCH (01:08)
[2018-08-22] MEDS: 1/2 NS w/KCL 20 mEq 1,000 ML IV SCH ×2 (05:24→15:57)
[2018-08-22 05:26] LABS: #Basophils 0.1 thou/uL (0.0-0.2); #Eosinphils 0.5 thou/uL (0.0-0.7); #Lymphocytes 1.2 thou/uL (1.20-3.40); #Monocytes 1.6 thou/uL (0.11-0.59); #Neutrophils 11.6 thou/uL (1.40-6.50); %Basophils 0.5 % (0.0-1.0); %Eosinophils 3.2 % (0.0-10.0); %Monocytes 10.8 % (0.0-10.0); %Neutrophils 77.5 % (42.0-75.0); Hemoglobin 11.8 g/dL (12.0-16.0); Mean Corpuscular HGB CONC 29.7 g/dL (32.0-36.0); Mean Corpuscular Hemoglobin 25.6 pg (27.0-31.0); Mean Corpuscular Volume 86.1 fL (78.0-98.0); Mean Platelet Volume 9.8 fL (7.4-10.4); Platelet Count 232 thou/uL (130-400); Red Blood Cell (RBC) Count 4.62 mill/uL (4.20-5.40)
[2018-08-22 05:27] LABS: Albumin 3.3 g/dL (3.4-4.8); Anion Gap 16 mmol/L (10-20); BUN (Urea Nitrogen) 13 mg/dL (9.8-20.1); BUN/Creatinine Ratio 7.18; Calc. Creatinine Clearance 49 mL/min (70-130); Calcium 8.9 mg/dL (7.8-10.44); Carbon Dioxide 15 mmol/L (23-31); Chloride 107 mmol/L (98-107); Estimated GFR-MDRD 34; Glucose 162 mg/dL (80-115); Potassium 3.9 mmol/L (3.5-5.1); Sodium 134 mmol/L (136-145)
[2018-08-22 05:32] LABS: Phosphorus 1.9 mg/dL (2.3-4.7)
[2018-08-22] MEDS ORDERED: Potassium Phosphate 9 MMOL in Sodium Chloride 0.9% 100 ML IVPB SCH (06:00)
[2018-08-22] MEDS: Furosemide 20 MG/2 ML VIAL SLOW IVP SCH (06:25)
[2018-08-22] MEDS: Bupropion 150 MG SR TAB PO SCH ×2 (08:53→20:27)
[2018-08-22] MEDS: Amlodipine 10 MG TAB PO SCH (08:53)
[2018-08-22] MEDS: Potassium Chloride 20 MEQ TAB PO SCH ×2 (08:54→20:27)
[2018-08-22] MEDS: cloNIDine 0.2 MG TAB PO SCH ×2 (08:54→20:27)
[2018-08-22] MEDS: Doxepin HCl 25 MG CAP PO SCH (08:54)
[2018-08-22] MEDS: Clopidogrel Bisulfate 75 MG TAB PO SCH (08:54)
[2018-08-22] MEDS: Famotidine 20 MG TAB PO SCH ×2 (08:54→20:27)
[2018-08-22] MEDS: Isosorbide Mononitrate 20 MG TAB PO SCH (08:54)
[2018-08-22] MEDS: Heparin 5,000 UNITS/ML VIAL SC SCH ×3 (08:55→20:27)
--- NOTE | 2018-08-22 10:23 | PDOC.PN ---
- Subjective Encounter Start Date: 08/22/18 Encounter Start Time: 08:00 Patient seen and examined. No new complaints. No overnight events - Objective Resuscitation Status: Resuscitation Status FULL:Full Resuscitation MAR Reviewed: Yes Vital Signs & Weight: Vital Signs (12 hours) Temp Pulse Resp BP BP Pulse Ox 08/22/18 08:54 124/79 08/22/18 07:42 97.5 F L 84 22 H 126/82 93 L 08/22/18 04:24 98.0 F 82 18 114/69 97 08/22/18 00:02 98.0 F 82 18 124/67 97 Weight Weight 229 lb 14.4 oz I&O: 08/21/18 08/22/18 08/23/18 06:59 06:59 06:59 Intake Total 1400 2580 Balance 1400 2580 Result Diagrams: 08/22/18 04:48 08/22/18 04:48 Additional Labs: Accuchecks 08/22/18 08/21/18 08/21/18 05:50 20:20 15:22 POC Glucose 178 H 152 H 204 H 08/21/18 11:11 POC Glucose 155 H Phys Exam - Physical Examination Constitutional: NAD HEENT: PERRLA, moist MMs, sclera anicteric Neck: no JVD, supple Respiratory: no wheezing, no rales, no rhonchi Cardiovascular: RRR, no significant murmur, no rub Gastrointestinal: soft, non-tender, no distention, positive bowel sounds Musculoskeletal: no edema, pulses present Neurological: non-focal, normal sensation, moves all 4 limbs Psychiatric: normal affect Skin: no rash, normal turgor Dx/Plan (1) Acute kidney failure Status: Acute Comment: improving with IVF (2) Acute metabolic encephalopathy Code(s): G93.41 - METABOLIC ENCEPHALOPATHY Status: Acute Comment: improving with improvement in electrolytes (3) Hypercalcemia of malignancy Code(s): E83.52 - HYPERCALCEMIA Status: Acute Comment: improving slowly (4) Hypokalemia Code(s): E87.6 - HYPOKALEMIA Status: Acute Comment: corrected (5) Lung cancer Code(s): C34.90 - MALIGNANT NEOPLASM OF UNSP PART OF UNSP BRONCHUS OR LUNG Status: Acute (6) Vitamin D deficiency Code(s): E55.9 - VITAMIN D DEFICIENCY, UNSPECIFIED Status: Acute Comment: on supplement (7) Anxiety and depression Code(s): F41.9 - ANXIETY DISORDER, UNSPECIFIED; F32.9 - MAJOR DEPRESSIVE DISORDER, SINGLE EPISODE, UNSPECIFIED Status: Chronic (8) Diabetes type 2, controlled Code(s): E11.9 - TYPE 2 DIABETES MELLITUS WITHOUT COMPLICATIONS Status: Chronic (9) Dyslipidemia Code(s): E78.5 - HYPERLIPIDEMIA, UNSPECIFIED Status: Chronic (10) GERD (gastroesophageal reflux disease) Code(s): K21.9 - GASTRO-ESOPHAGEAL REFLUX DISEASE WITHOUT ESOPHAGITIS Status: Chronic (11) Hypertension Code(s): I10 - ESSENTIAL (PRIMARY) HYPERTENSION Status: Chronic (12) Obesity (BMI 30-39.9) Code(s): E66.9 - OBESITY, UNSPECIFIED Status: Chronic (13) Hypomagnesemia Code(s): E83.42 - HYPOMAGNESEMIA Status: Acute Comment: corrected (14) Leucocytosis Code(s): D72.829 - ELEVATED WHITE BLOOD CELL COUNT, UNSPECIFIED Status: Acute (15) Hypophosphatemia Code(s): E83.39 - OTHER DISORDERS OF PHOSPHORUS METABOLISM Status: Acute - 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 * repeat labs tomorrow * CHARMAINE Mack Review of Systems - Review of Systems ENT: negative: Ear Pain, Ear Discharge, Nose Pain, Nose Discharge, Nose Congestion, Mouth Pain, Mouth Swelling, Throat Pain, Throat Swelling, Other Respiratory: negative: Cough, Dry, Shortness of Breath, Hemoptysis, SOB with Excertion, Pleuritic Pain, Sputum, Wheezing Cardiovascular: negative: chest pain, palpitations, orthopnea, paroxysmal nocturnal dyspnea, edema, light headedness, other Gastrointestinal: negative: Nausea, Vomiting, Abdominal Pain, Diarrhea, Constipation, Melena, Hematochezia, Other Genitourinary: negative: Dysuria, Frequency, Incontinence, Hematuria, Retention , Other Musculoskeletal: negative: Neck Pain, Shoulder Pain, Arm Pain, Back Pain, Hand Pain, Leg Pain, Foot Pain, Other Skin: negative: Rash, Lesions, Carlos, Bruising, Other - Medications/Allergies Allergies/Adverse Reactions: Allergies Allergy/AdvReac Type Severity Reaction Status Date / Time No Known Allergies Allergy Unverified 08/14/18 23:52 Medications: Current Medications Acetaminophen (Tylenol) 500 mg PO Q6H PRN PRN Reason: Mild Pain (1-3) Hydrocodone Bitart/Acetaminophen ([place] 5/325) 1 tab PO Q4H PRN PRN Reason: Moderate Pain (4-6) Amlodipine Besylate (Norvasc) 10 mg PO DAILY [facility] Last Admin: 08/22/18 08:53 Dose: 10 mg Artificial Tears (Tears Naturale) 2 drop EA EYE PRN PRN PRN Reason: Dry Eyes Bisacodyl (Dulcolax) 10 mg PO DAILYPRN PRN PRN Reason: Constipation Bisacodyl (Dulcolax) 10 mg [place] DAILYPRN PRN PRN Reason: Constipation Bupropion HCl (Wellbutrin Sr) 150 mg PO BID [facility] Last Admin: 08/22/18 08:53 Dose: 150 mg Clonidine (Catapres) 0.2 mg PO BID [facility] Last Admin: 08/22/18 08:54 Dose: 0.2 mg Clonidine (Catapres) 0.1 mg PO Q4H PRN PRN Reason: SBP Greater Than 170 Clopidogrel Bisulfate (Plavix) 75 mg PO DAILY [facility] Last Admin: 08/22/18 08:54 Dose: 75 mg Dextrose/Water (Dextrose 50%) 25 gm SLOW IVP PRN PRN PRN Reason: Hypoglycemia Doxepin HCl (Sinequan) 50 mg PO DAILY [facility] Last Admin: 08/22/18 08:54 Dose: 50 mg Famotidine (Pepcid) 20 mg PO BID [facility] Last Admin: 08/22/18 08:54 Dose: 20 mg Glucagon (Glucagon) 1 mg IM PRN PRN PRN Reason: Hypoglycemia Guaifenesin (Robitussin Sf) 200 mg PO Q4H PRN PRN Reason: Cough Heparin Sodium (Porcine) (Heparin) 5,000 units SC TID [facility] Last Admin: 08/22/18 08:55 Dose: 5,000 units Hydralazine HCl (Apresoline) 10 mg SLOW IVP Q4H PRN PRN Reason: SBP Greater Than 170 Last Admin: 08/15/18 13:22 Dose: 10 mg Dextrose/Water (D5w) 1,000 mls @ 0 mls/hr IV .Q0M PRN PRN Reason: Hypoglycemia Potassium Chloride/Sodium Chloride (1/2 Ns W/Kcl 20 Meq) 1,000 mls @ 50 mls/hr IV .Q20H [facility] Last Admin: 08/22/18 05:24 Dose: Not Given Insulin Human Lispro (Humalog) 0 units SC .MODERATE SLIDING SC PRN PRN Reason: Moderate Correctional Scale Last Admin: 08/21/18 18:24 Dose: 4 unit Insulin Human Lispro (Humalog) 0 units SC .BEDTIME SLIDING SC PRN PRN Reason: Bedtime Correctional Scale Isosorbide Mononitrate (Ismo) 20 mg PO DAILY [facility] Last Admin: 08/22/18 08:54 Dose: 20 mg Loperamide HCl (Imodium) 2 mg PO PRN PRN PRN Reason: Diarrhea/Loose Stools Loratadine (Claritin) 10 mg PO DAILYPRN PRN PRN Reason: Sinus Symptoms Mineral Oil/White Petrolatum (Eucerin Cream) 0 gm TOP BIDPRN PRN PRN Reason: Dry Skin Miscellaneous Medication (Phos-Nak) 1 pkt PO BID [facility] Last Admin: 08/22/18 09:00 Dose: 1 pkt Morphine Sulfate (Ms Contin) 30 mg PO Q8H PRN PRN Reason: Pain Nitroglycerin (Nitrostat) 0.4 mg SL Q5MIN [facility] Ondansetron HCl (Zofran) 4 mg IVP Q6H PRN PRN Reason: Nausea/Vomiting Ondansetron HCl (Zofran Odt) 4 mg SL Q6H PRN PRN Reason: Nausea/Vomiting Potassium Chloride (K-Dur) 20 meq PO BID [facility] Last Admin: 08/22/18 08:54 Dose: 20 meq Rosuvastatin Calcium (Crestor) 40 mg PO HS [facility] Last Admin: 08/21/18 19:54 Dose: 40 mg Senna/Docusate Sodium (Senokot S) 2 tab PO BID PRN PRN Reason: Constipation Sodium Chloride (Flush - Normal Saline) 10 ml IVF Q12HR [facility] Last Admin: 08/22/18 08:55 Dose: Not Given Sodium Chloride (Flush - Normal Saline) 10 ml IVF PRN PRN PRN Reason: Saline Flush Sodium Chloride ([place] Nasal [place] 0.65%) 0 ml EA NARE QIDPRN PRN PRN Reason: Nasal Congestion Throat Lozenges (Cepastat Lozenges) 1 micky PO Q2H PRN PRN Reason: Sore Throat Zolpidem Tartrate (Ambien) 5 mg PO HSPRN PRN PRN Reason: Insomnia
[2018-08-22] MEDS: HumaLOG 300 UNITS/3 ML VIAL SC PRN ×2 (13:56→15:59)
[2018-08-22] MEDS: Rosuvastatin 20 MG TAB PO SCH (20:27)
[2018-08-23 06:57] LABS: #Basophils 0.1 thou/uL (0.0-0.2); #Eosinphils 0.5 thou/uL (0.0-0.7); #Lymphocytes 1.2 thou/uL (1.20-3.40); #Monocytes 1.6 thou/uL (0.11-0.59); #Neutrophils 12.6 thou/uL (1.40-6.50); %Basophils 0.4 % (0.0-1.0); %Eosinophils 3.3 % (0.0-10.0); %Lymphocytes 7.6 % (21.0-51.0); %Monocytes 10.2 % (0.0-10.0); %Neutrophils 78.5 % (42.0-75.0); Hemoglobin 11.1 g/dL (12.0-16.0); Mean Corpuscular HGB CONC 30.3 g/dL (32.0-36.0); Mean Corpuscular Volume 85.7 fL (78.0-98.0); Mean Platelet Volume 9.9 fL (7.4-10.4); Platelet Count 246 thou/uL (130-400); Red Blood Cell (RBC) Count 4.29 mill/uL (4.20-5.40); White Blood Cell (WBC) Count 16.1 thou/uL (4.8-10.8)
[2018-08-23 07:22] LABS: Anion Gap 13 mmol/L (10-20); BUN (Urea Nitrogen) 11 mg/dL (9.8-20.1); Calc. Creatinine Clearance 48 mL/min (70-130); Calcium 8.5 mg/dL (7.8-10.44); Carbon Dioxide 16 mmol/L (23-31); Chloride 108 mmol/L (98-107); Estimated GFR-MDRD 33; Glucose 173 mg/dL (80-115); Magnesium 1.8 mg/dL (1.6-2.6); Phosphorus 2.4 mg/dL (2.3-4.7); Potassium 4.1 mmol/L (3.5-5.1); Sodium 133 mmol/L (136-145)
[2018-08-23] MEDS: Isosorbide Mononitrate 20 MG TAB PO SCH (07:26)
[2018-08-23] MEDS: Bupropion 150 MG SR TAB PO SCH ×2 (07:26→20:27)
[2018-08-23] MEDS: Doxepin HCl 25 MG CAP PO SCH (07:26)
[2018-08-23] MEDS: Famotidine 20 MG TAB PO SCH (07:27)
[2018-08-23] MEDS: Clopidogrel Bisulfate 75 MG TAB PO SCH (07:27)
[2018-08-23] MEDS: cloNIDine 0.2 MG TAB PO SCH ×2 (07:27→20:28)
[2018-08-23] MEDS: Amlodipine 10 MG TAB PO SCH (07:27)
[2018-08-23] MEDS: Potassium Chloride 20 MEQ TAB PO SCH ×2 (07:27→20:27)
[2018-08-23] MEDS: Heparin 5,000 UNITS/ML VIAL SC SCH ×3 (07:28→20:27)
--- NOTE | 2018-08-23 10:05 | PDOC.PN ---
- Subjective Encounter Start Date: 08/23/18 Encounter Start Time: 08:50 Patient seen and examined. No new complaints. No overnight events - Objective Resuscitation Status: Resuscitation Status FULL:Full Resuscitation MAR Reviewed: Yes Vital Signs & Weight: Vital Signs (12 hours) Temp Pulse Resp BP BP Pulse Ox 08/23/18 07:27 75 112/73 08/23/18 04:00 97.7 F 75 18 112/75 95 08/22/18 23:56 98.2 F 80 16 98/60 95 Weight Weight 229 lb 6.4 oz I&O: 08/22/18 08/23/18 08/24/18 06:59 06:59 06:59 Intake Total 2580 1680 Balance 2580 1680 Result Diagrams: 08/23/18 06:49 08/23/18 06:49 Additional Labs: Accuchecks 08/23/18 08/22/18 08/22/18 05:42 20:11 15:48 POC Glucose 175 H 162 H 167 H 08/22/18 11:19 POC Glucose 195 H Phys Exam - Physical Examination Constitutional: NAD HEENT: PERRLA, moist MMs, sclera anicteric Neck: no JVD, supple Respiratory: no wheezing, no rales, no rhonchi Cardiovascular: RRR, no significant murmur, no rub Gastrointestinal: soft, non-tender, no distention, positive bowel sounds Musculoskeletal: no edema, pulses present Neurological: non-focal, normal sensation, moves all 4 limbs Psychiatric: normal affect, A&O x 3 Skin: no rash, normal turgor Dx/Plan (1) Acute kidney failure Status: Acute Comment: improving with IVF (2) Acute metabolic encephalopathy Code(s): G93.41 - METABOLIC ENCEPHALOPATHY Status: Acute Comment: improving with improvement in electrolytes (3) Hypercalcemia of malignancy Code(s): E83.52 - HYPERCALCEMIA Status: Acute Comment: improving slowly (4) Hypokalemia Code(s): E87.6 - HYPOKALEMIA Status: Acute Comment: corrected (5) Lung cancer Code(s): C34.90 - MALIGNANT NEOPLASM OF UNSP PART OF UNSP BRONCHUS OR LUNG Status: Acute (6) Vitamin D deficiency Code(s): E55.9 - VITAMIN D DEFICIENCY, UNSPECIFIED Status: Acute Comment: on supplement (7) Anxiety and depression Code(s): F41.9 - ANXIETY DISORDER, UNSPECIFIED; F32.9 - MAJOR DEPRESSIVE DISORDER, SINGLE EPISODE, UNSPECIFIED Status: Chronic (8) Diabetes type 2, controlled Code(s): E11.9 - TYPE 2 DIABETES MELLITUS WITHOUT COMPLICATIONS Status: Chronic (9) Dyslipidemia Code(s): E78.5 - HYPERLIPIDEMIA, UNSPECIFIED Status: Chronic (10) GERD (gastroesophageal reflux disease) Code(s): K21.9 - GASTRO-ESOPHAGEAL REFLUX DISEASE WITHOUT ESOPHAGITIS Status: Chronic (11) Hypertension Code(s): I10 - ESSENTIAL (PRIMARY) HYPERTENSION Status: Chronic (12) Obesity (BMI 30-39.9) Code(s): E66.9 - OBESITY, UNSPECIFIED Status: Chronic (13) Hypomagnesemia Code(s): E83.42 - HYPOMAGNESEMIA Status: Acute Comment: corrected (14) Leucocytosis Code(s): D72.829 - ELEVATED WHITE BLOOD CELL COUNT, UNSPECIFIED Status: Acute (15) Hypophosphatemia Code(s): E83.39 - OTHER DISORDERS OF PHOSPHORUS METABOLISM Status: Acute - 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 Review of Systems - Review of Systems ENT: negative: Ear Pain, Ear Discharge, Nose Pain, Nose Discharge, Nose Congestion, Mouth Pain, Mouth Swelling, Throat Pain, Throat Swelling, Other Respiratory: negative: Cough, Dry, Shortness of Breath, Hemoptysis, SOB with Excertion, Pleuritic Pain, Sputum, Wheezing Cardiovascular: negative: chest pain, palpitations, orthopnea, paroxysmal nocturnal dyspnea, edema, light headedness, other Gastrointestinal: negative: Nausea, Vomiting, Abdominal Pain, Diarrhea, Constipation, Melena, Hematochezia, Other Genitourinary: negative: Dysuria, Frequency, Incontinence, Hematuria, Retention , Other Musculoskeletal: negative: Neck Pain, Shoulder Pain, Arm Pain, Back Pain, Hand Pain, Leg Pain, Foot Pain, Other - Medications/Allergies Allergies/Adverse Reactions: Allergies Allergy/AdvReac Type Severity Reaction Status Date / Time No Known Allergies Allergy Unverified 08/14/18 23:52 Medications: Current Medications Acetaminophen (Tylenol) 500 mg PO Q6H PRN PRN Reason: Mild Pain (1-3) Hydrocodone Bitart/Acetaminophen ([place] 5/325) 1 tab PO Q4H PRN PRN Reason: Moderate Pain (4-6) Amlodipine Besylate (Norvasc) 10 mg PO DAILY [facility] Last Admin: 08/23/18 07:27 Dose: 10 mg Artificial Tears (Tears Naturale) 2 drop EA EYE PRN PRN PRN Reason: Dry Eyes Bisacodyl (Dulcolax) 10 mg PO DAILYPRN PRN PRN Reason: Constipation Bisacodyl (Dulcolax) 10 mg [place] DAILYPRN PRN PRN Reason: Constipation Bupropion HCl (Wellbutrin Sr) 150 mg PO BID [facility] Last Admin: 08/23/18 07:26 Dose: 150 mg Clonidine (Catapres) 0.2 mg PO BID [facility] Last Admin: 08/23/18 07:27 Dose: 0.2 mg Clonidine (Catapres) 0.1 mg PO Q4H PRN PRN Reason: SBP Greater Than 170 Clopidogrel Bisulfate (Plavix) 75 mg PO DAILY [facility] Last Admin: 08/23/18 07:27 Dose: 75 mg Dextrose/Water (Dextrose 50%) 25 gm SLOW IVP PRN PRN PRN Reason: Hypoglycemia Doxepin HCl (Sinequan) 50 mg PO DAILY [facility] Last Admin: 08/23/18 07:26 Dose: 50 mg Famotidine (Pepcid) 20 mg PO BID [facility] Last Admin: 08/23/18 07:27 Dose: 20 mg Glucagon (Glucagon) 1 mg IM PRN PRN PRN Reason: Hypoglycemia Guaifenesin (Robitussin Sf) 200 mg PO Q4H PRN PRN Reason: Cough Heparin Sodium (Porcine) (Heparin) 5,000 units SC TID [facility] Last Admin: 08/23/18 07:28 Dose: 5,000 units Hydralazine HCl (Apresoline) 10 mg SLOW IVP Q4H PRN PRN Reason: SBP Greater Than 170 Last Admin: 08/15/18 13:22 Dose: 10 mg Dextrose/Water (D5w) 1,000 mls @ 0 mls/hr IV .Q0M PRN PRN Reason: Hypoglycemia Potassium Chloride/Sodium Chloride (1/2 Ns W/Kcl 20 Meq) 1,000 mls @ 50 mls/hr IV .Q20H [facility] Last Admin: 08/22/18 15:57 Dose: 1,000 mls Insulin Human Lispro (Humalog) 0 units SC .MODERATE SLIDING SC PRN PRN Reason: Moderate Correctional Scale Last Admin: 08/22/18 15:59 Dose: 2 unit Insulin Human Lispro (Humalog) 0 units SC .BEDTIME SLIDING SC PRN PRN Reason: Bedtime Correctional Scale Isosorbide Mononitrate (Ismo) 20 mg PO DAILY [facility] Last Admin: 08/23/18 07:26 Dose: 20 mg Loperamide HCl (Imodium) 2 mg PO PRN PRN PRN Reason: Diarrhea/Loose Stools Loratadine (Claritin) 10 mg PO DAILYPRN PRN PRN Reason: Sinus Symptoms Mineral Oil/White Petrolatum (Eucerin Cream) 0 gm TOP BIDPRN PRN PRN Reason: Dry Skin Miscellaneous Medication (Phos-Nak) 1 pkt PO BID [facility] Last Admin: 08/23/18 07:27 Dose: 1 pkt Morphine Sulfate (Ms Contin) 30 mg PO Q8H PRN PRN Reason: Pain Nitroglycerin (Nitrostat) 0.4 mg SL Q5MIN [facility] Ondansetron HCl (Zofran) 4 mg IVP Q6H PRN PRN Reason: Nausea/Vomiting Ondansetron HCl (Zofran Odt) 4 mg SL Q6H PRN PRN Reason: Nausea/Vomiting Potassium Chloride (K-Dur) 20 meq PO BID [facility] Last Admin: 08/23/18 07:27 Dose: 20 meq Rosuvastatin Calcium (Crestor) 40 mg PO HS [facility] Last Admin: 08/22/18 20:27 Dose: 40 mg Senna/Docusate Sodium (Senokot S) 2 tab PO BID PRN PRN Reason: Constipation Sodium Chloride (Flush - Normal Saline) 10 ml IVF Q12HR [facility] Last Admin: 08/23/18 07:28 Dose: Not Given Sodium Chloride (Flush - Normal Saline) 10 ml IVF PRN PRN PRN Reason: Saline Flush Sodium Chloride ([place] Nasal [place] 0.65%) 0 ml EA NARE QIDPRN PRN PRN Reason: Nasal Congestion Throat Lozenges (Cepastat Lozenges) 1 micky PO Q2H PRN PRN Reason: Sore Throat Zolpidem Tartrate (Ambien) 5 mg PO HSPRN PRN PRN Reason: Insomnia
[2018-08-23] MEDS: HumaLOG 300 UNITS/3 ML VIAL SC PRN (12:55)
[2018-08-23] MEDS: Rosuvastatin 20 MG TAB PO SCH (20:27)
[2018-08-23] MEDS: 1/2 NS w/KCL 20 mEq 1,000 ML IV SCH (20:28)
[2018-08-24] MEDS: HumaLOG 300 UNITS/3 ML VIAL SC PRN ×2 (06:21→17:18)
[2018-08-24] MEDS: cloNIDine 0.2 MG TAB PO SCH ×2 (07:49→20:31)
[2018-08-24] MEDS: Potassium Chloride 20 MEQ TAB PO SCH ×2 (07:50→20:30)
[2018-08-24] MEDS: Clopidogrel Bisulfate 75 MG TAB PO SCH (07:50)
[2018-08-24] MEDS: Famotidine 20 MG TAB PO SCH (07:50)
[2018-08-24] MEDS: Isosorbide Mononitrate 20 MG TAB PO SCH (07:50)
[2018-08-24] MEDS: Doxepin HCl 25 MG CAP PO SCH (07:50)
[2018-08-24] MEDS: Amlodipine 10 MG TAB PO SCH (07:50)
[2018-08-24] MEDS: Bupropion 150 MG SR TAB PO SCH ×2 (07:51→20:31)
[2018-08-24] MEDS: Heparin 5,000 UNITS/ML VIAL SC SCH ×3 (07:51→20:31)
--- NOTE | 2018-08-24 09:55 | PDOC.PN ---
- Subjective Encounter Start Date: 08/24/18 Encounter Start Time: 08:10 pt has lung cancer diagnosis but she has not started any therapy yet, she missed appointment recently, today she is confused - Objective Resuscitation Status: Resuscitation Status FULL:Full Resuscitation MAR Reviewed: Yes Vital Signs & Weight: Vital Signs (12 hours) Temp Pulse Resp BP BP Pulse Ox 08/24/18 07:50 82 08/24/18 07:49 124/76 08/24/18 07:14 97.4 F L 80 20 124/76 98 08/24/18 04:00 98.8 F 82 16 131/81 93 L 08/24/18 01:13 97.8 F 73 16 114/78 94 L Weight Weight 234 lb 8 oz I&O: 08/23/18 08/24/18 08/25/18 06:59 06:59 06:59 Intake Total 1680 1060 610 Balance 1680 1060 610 Result Diagrams: 08/23/18 06:49 08/23/18 06:49 Additional Labs: Accuchecks 08/24/18 08/23/18 08/23/18 05:58 21:11 16:14 POC Glucose 206 H 196 H 117 H 08/23/18 10:49 POC Glucose 202 H Phys Exam - Physical Examination Constitutional: NAD HEENT: PERRLA, moist MMs, sclera anicteric Neck: no JVD, supple Respiratory: no wheezing, no rales, no rhonchi Cardiovascular: RRR, no significant murmur, no rub Gastrointestinal: soft, non-tender, no distention, positive bowel sounds Musculoskeletal: no edema, pulses present Neurological: non-focal, normal sensation Lymphatic: no nodes Psychiatric: normal affect Skin: no rash, normal turgor Dx/Plan (1) Acute kidney failure Status: Acute Comment: improving with IVF (2) Acute metabolic encephalopathy Code(s): G93.41 - METABOLIC ENCEPHALOPATHY Status: Acute Comment: improving with improvement in electrolytes (3) Hypercalcemia of malignancy Code(s): E83.52 - HYPERCALCEMIA Status: Acute Comment: improving slowly (4) Hypokalemia Code(s): E87.6 - HYPOKALEMIA Status: Acute Comment: corrected (5) Lung cancer Code(s): C34.90 - MALIGNANT NEOPLASM OF UNSP PART OF UNSP BRONCHUS OR LUNG Status: Acute (6) Vitamin D deficiency Code(s): E55.9 - VITAMIN D DEFICIENCY, UNSPECIFIED Status: Acute Comment: on supplement (7) Anxiety and depression Code(s): F41.9 - ANXIETY DISORDER, UNSPECIFIED; F32.9 - MAJOR DEPRESSIVE DISORDER, SINGLE EPISODE, UNSPECIFIED Status: Chronic (8) Diabetes type 2, controlled Code(s): E11.9 - TYPE 2 DIABETES MELLITUS WITHOUT COMPLICATIONS Status: Chronic (9) Dyslipidemia Code(s): E78.5 - HYPERLIPIDEMIA, UNSPECIFIED Status: Chronic (10) GERD (gastroesophageal reflux disease) Code(s): K21.9 - GASTRO-ESOPHAGEAL REFLUX DISEASE WITHOUT ESOPHAGITIS Status: Chronic (11) Hypertension Code(s): I10 - ESSENTIAL (PRIMARY) HYPERTENSION Status: Chronic (12) Obesity (BMI 30-39.9) Code(s): E66.9 - OBESITY, UNSPECIFIED Status: Chronic (13) Hypomagnesemia Code(s): E83.42 - HYPOMAGNESEMIA Status: Acute Comment: corrected (14) Leucocytosis Code(s): D72.829 - ELEVATED WHITE BLOOD CELL COUNT, UNSPECIFIED Status: Acute (15) Hypophosphatemia Code(s): E83.39 - OTHER DISORDERS OF PHOSPHORUS METABOLISM Status: Acute - 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, 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, 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 is not 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 discharge by herself at home * she will need placement but family not available to make decision * oncology follow up for final treatment plan for cancer * medically stable * medication reviewed as below * symptomatic treatment * continue PT/OT Review of Systems - Review of Systems ENT: negative: Ear Pain, Ear Discharge, Nose Pain, Nose Discharge, Nose Congestion, Mouth Pain, Mouth Swelling, Throat Pain, Throat Swelling, Other Respiratory: negative: Cough, Dry, Shortness of Breath, Hemoptysis, SOB with Excertion, Pleuritic Pain, Sputum, Wheezing Cardiovascular: negative: chest pain, palpitations, orthopnea, paroxysmal nocturnal dyspnea, edema, light headedness, other Gastrointestinal: negative: Nausea, Vomiting, Abdominal Pain, Diarrhea, Constipation, Melena, Hematochezia, Other Genitourinary: negative: Dysuria, Frequency, Incontinence, Hematuria, Retention , Other Musculoskeletal: negative: Neck Pain, Shoulder Pain, Arm Pain, Back Pain, Hand Pain, Leg Pain, Foot Pain, Other Skin: negative: Rash, Lesions, Carlos, Bruising, Other Neurological: Confusion. negative: Weakness, Numbness, Incoordination, Change in Speech, Seizures, Other - Medications/Allergies Allergies/Adverse Reactions: Allergies Allergy/AdvReac Type Severity Reaction Status Date / Time No Known Allergies Allergy Unverified 08/14/18 23:52 Medications: Current Medications Acetaminophen (Tylenol) 500 mg PO Q6H PRN PRN Reason: Mild Pain (1-3) Hydrocodone Bitart/Acetaminophen ([place] 5/325) 1 tab PO Q4H PRN PRN Reason: Moderate Pain (4-6) Last Admin: 08/23/18 20:32 Dose: 1 tab Amlodipine Besylate (Norvasc) 10 mg PO DAILY [facility] Last Admin: 08/24/18 07:50 Dose: 10 mg Artificial Tears (Tears Naturale) 2 drop EA EYE PRN PRN PRN Reason: Dry Eyes Bisacodyl (Dulcolax) 10 mg PO DAILYPRN PRN PRN Reason: Constipation Bisacodyl (Dulcolax) 10 mg [place] DAILYPRN PRN PRN Reason: Constipation Bupropion HCl (Wellbutrin Sr) 150 mg PO BID [facility] Last Admin: 08/24/18 07:51 Dose: 150 mg Clonidine (Catapres) 0.2 mg PO BID [facility] Last Admin: 08/24/18 07:49 Dose: 0.2 mg Clonidine (Catapres) 0.1 mg PO Q4H PRN PRN Reason: SBP Greater Than 170 Clopidogrel Bisulfate (Plavix) 75 mg PO DAILY [facility] Last Admin: 08/24/18 07:50 Dose: 75 mg Dextrose/Water (Dextrose 50%) 25 gm SLOW IVP PRN PRN PRN Reason: Hypoglycemia Doxepin HCl (Sinequan) 50 mg PO DAILY [facility] Last Admin: 08/24/18 07:50 Dose: 50 mg Famotidine (Pepcid) 20 mg PO 0900 [facility] Last Admin: 08/24/18 07:50 Dose: 20 mg Glucagon (Glucagon) 1 mg IM PRN PRN PRN Reason: Hypoglycemia Guaifenesin (Robitussin Sf) 200 mg PO Q4H PRN PRN Reason: Cough Heparin Sodium (Porcine) (Heparin) 5,000 units SC TID [facility] Last Admin: 08/24/18 07:51 Dose: 5,000 units Hydralazine HCl (Apresoline) 10 mg SLOW IVP Q4H PRN PRN Reason: SBP Greater Than 170 Last Admin: 08/15/18 13:22 Dose: 10 mg Dextrose/Water (D5w) 1,000 mls @ 0 mls/hr IV .Q0M PRN PRN Reason: Hypoglycemia Potassium Chloride/Sodium Chloride (1/2 Ns W/Kcl 20 Meq) 1,000 mls @ 50 mls/hr IV .Q20H [facility] Last Admin: 08/23/18 20:28 Dose: Not Given Insulin Human Lispro (Humalog) 0 units SC .MODERATE SLIDING SC PRN PRN Reason: Moderate Correctional Scale Last Admin: 08/24/18 06:21 Dose: 4 unit Insulin Human Lispro (Humalog) 0 units SC .BEDTIME SLIDING SC PRN PRN Reason: Bedtime Correctional Scale Isosorbide Mononitrate (Ismo) 20 mg PO DAILY [facility] Last Admin: 08/24/18 07:50 Dose: 20 mg Loperamide HCl (Imodium) 2 mg PO PRN PRN PRN Reason: Diarrhea/Loose Stools Loratadine (Claritin) 10 mg PO DAILYPRN PRN PRN Reason: Sinus Symptoms Mineral Oil/White Petrolatum (Eucerin Cream) 0 gm TOP BIDPRN PRN PRN Reason: Dry Skin Miscellaneous Medication (Phos-Nak) 1 pkt PO BID [facility] Last Admin: 08/24/18 07:49 Dose: 1 pkt Morphine Sulfate (Ms Contin) 30 mg PO Q8H PRN PRN Reason: Pain Nitroglycerin (Nitrostat) 0.4 mg SL Q5MIN [facility] Ondansetron HCl (Zofran) 4 mg IVP Q6H PRN PRN Reason: Nausea/Vomiting Ondansetron HCl (Zofran Odt) 4 mg SL Q6H PRN PRN Reason: Nausea/Vomiting Potassium Chloride (K-Dur) 20 meq PO BID [facility] Last Admin: 08/24/18 07:50 Dose: 20 meq Rosuvastatin Calcium (Crestor) 40 mg PO HS [facility] Last Admin: 08/23/18 20:27 Dose: 40 mg Senna/Docusate Sodium (Senokot S) 2 tab PO BID PRN PRN Reason: Constipation Sodium Chloride (Flush - Normal Saline) 10 ml IVF Q12HR [facility] Last Admin: 08/24/18 07:51 Dose: 10 ml Sodium Chloride (Flush - Normal Saline) 10 ml IVF PRN PRN PRN Reason: Saline Flush Sodium Chloride ([place] Nasal [place] 0.65%) 0 ml EA NARE QIDPRN PRN PRN Reason: Nasal Congestion Throat Lozenges (Cepastat Lozenges) 1 micky PO Q2H PRN PRN Reason: Sore Throat Zolpidem Tartrate (Ambien) 5 mg PO HSPRN PRN PRN Reason: Insomnia
[2018-08-24] MEDS: 1/2 NS w/KCL 20 mEq 1,000 ML IV SCH (15:34)
[2018-08-24] MEDS: Rosuvastatin 20 MG TAB PO SCH (20:31)
[2018-08-24] MEDS: Acetaminophen 500 MG TAB PO PRN (20:31)
[2018-08-25] MEDS: Potassium Chloride 20 MEQ TAB PO SCH ×2 (09:19→21:33)
[2018-08-25] MEDS: Doxepin HCl 25 MG CAP PO SCH (09:19)
[2018-08-25] MEDS: Isosorbide Mononitrate 20 MG TAB PO SCH (09:19)
[2018-08-25] MEDS: Bupropion 150 MG SR TAB PO SCH ×2 (09:19→21:34)
[2018-08-25] MEDS: Clopidogrel Bisulfate 75 MG TAB PO SCH (09:20)
[2018-08-25] MEDS: Heparin 5,000 UNITS/ML VIAL SC SCH ×3 (09:20→21:34)
[2018-08-25] MEDS: cloNIDine 0.2 MG TAB PO SCH ×2 (09:20→21:33)
[2018-08-25] MEDS: Famotidine 20 MG TAB PO SCH (09:20)
[2018-08-25] MEDS: Amlodipine 10 MG TAB PO SCH (09:20)
--- NOTE | 2018-08-25 10:16 | PDOC.PN ---
- Subjective Encounter Start Date: 08/25/18 Encounter Start Time: 08:00 Patient seen and examined. No new complaints. No overnight events - Objective Resuscitation Status: Resuscitation Status FULL:Full Resuscitation MAR Reviewed: Yes Vital Signs & Weight: Vital Signs (12 hours) Temp Pulse Resp BP Pulse Ox 08/25/18 09:20 80 08/25/18 08:00 97.2 F L 80 24 H 130/80 97 08/25/18 04:28 98.1 F 80 18 114/65 98 Weight Weight 234 lb 2 oz I&O: 08/24/18 08/25/18 08/26/18 06:59 06:59 06:59 Intake Total 1060 1370 Output Total 200 Balance 1060 1170 Result Diagrams: 08/23/18 06:49 08/23/18 06:49 Additional Labs: Accuchecks 08/25/18 08/24/18 08/24/18 06:07 21:13 15:49 POC Glucose 189 H 220 H 184 H 08/24/18 11:03 POC Glucose 126 H Phys Exam - Physical Examination Constitutional: NAD HEENT: PERRLA, moist MMs, sclera anicteric Neck: no JVD, supple Respiratory: no wheezing, no rales, no rhonchi Cardiovascular: RRR, no significant murmur, no rub Gastrointestinal: soft, non-tender, no distention, positive bowel sounds Musculoskeletal: no edema, pulses present Neurological: moves all 4 limbs Lymphatic: no nodes Psychiatric: normal affect Skin: no rash, normal turgor Dx/Plan (1) Acute kidney failure Status: Acute Comment: improving with IVF (2) Acute metabolic encephalopathy Code(s): G93.41 - METABOLIC ENCEPHALOPATHY Status: Acute Comment: improving with improvement in electrolytes (3) Hypercalcemia of malignancy Code(s): E83.52 - HYPERCALCEMIA Status: Acute Comment: improving slowly (4) Hypokalemia Code(s): E87.6 - HYPOKALEMIA Status: Acute Comment: corrected (5) Lung cancer Code(s): C34.90 - MALIGNANT NEOPLASM OF UNSP PART OF UNSP BRONCHUS OR LUNG Status: Acute (6) Vitamin D deficiency Code(s): E55.9 - VITAMIN D DEFICIENCY, UNSPECIFIED Status: Acute Comment: on supplement (7) Anxiety and depression Code(s): F41.9 - ANXIETY DISORDER, UNSPECIFIED; F32.9 - MAJOR DEPRESSIVE DISORDER, SINGLE EPISODE, UNSPECIFIED Status: Chronic (8) Diabetes type 2, controlled Code(s): E11.9 - TYPE 2 DIABETES MELLITUS WITHOUT COMPLICATIONS Status: Chronic (9) Dyslipidemia Code(s): E78.5 - HYPERLIPIDEMIA, UNSPECIFIED Status: Chronic (10) GERD (gastroesophageal reflux disease) Code(s): K21.9 - GASTRO-ESOPHAGEAL REFLUX DISEASE WITHOUT ESOPHAGITIS Status: Chronic (11) Hypertension Code(s): I10 - ESSENTIAL (PRIMARY) HYPERTENSION Status: Chronic (12) Obesity (BMI 30-39.9) Code(s): E66.9 - OBESITY, UNSPECIFIED Status: Chronic (13) Hypomagnesemia Code(s): E83.42 - HYPOMAGNESEMIA Status: Acute Comment: corrected (14) Leucocytosis Code(s): D72.829 - ELEVATED WHITE BLOOD CELL COUNT, UNSPECIFIED Status: Acute (15) Hypophosphatemia Code(s): E83.39 - OTHER DISORDERS OF PHOSPHORUS METABOLISM Status: Acute - 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, bilingual social worker * she will need oncology treatment after discharge * she needs safe discharge plan, no family to make decision, medical case manager on case * medication reviewed as below * symptomatic treatment. Review of Systems - Review of Systems ENT: negative: Ear Pain, Ear Discharge, Nose Pain, Nose Discharge, Nose Congestion, Mouth Pain, Mouth Swelling, Throat Pain, Throat Swelling, Other Respiratory: negative: Cough, Dry, Shortness of Breath, Hemoptysis, SOB with Excertion, Pleuritic Pain, Sputum, Wheezing Cardiovascular: negative: chest pain, palpitations, orthopnea, paroxysmal nocturnal dyspnea, edema, light headedness, other Gastrointestinal: negative: Nausea, Vomiting, Abdominal Pain, Diarrhea, Constipation, Melena, Hematochezia, Other Genitourinary: negative: Dysuria, Frequency, Incontinence, Hematuria, Retention , Other Musculoskeletal: negative: Neck Pain, Shoulder Pain, Arm Pain, Back Pain, Hand Pain, Leg Pain, Foot Pain, Other - Medications/Allergies Allergies/Adverse Reactions: Allergies Allergy/AdvReac Type Severity Reaction Status Date / Time No Known Allergies Allergy Unverified 08/14/18 23:52 Medications: Current Medications Acetaminophen (Tylenol) 500 mg PO Q6H PRN PRN Reason: Mild Pain (1-3) Last Admin: 08/24/18 20:31 Dose: 500 mg Amlodipine Besylate (Norvasc) 10 mg PO DAILY [facility] Last Admin: 08/25/18 09:20 Dose: 10 mg Artificial Tears (Tears Naturale) 2 drop EA EYE PRN PRN PRN Reason: Dry Eyes Bisacodyl (Dulcolax) 10 mg PO DAILYPRN PRN PRN Reason: Constipation Bisacodyl (Dulcolax) 10 mg [place] DAILYPRN PRN PRN Reason: Constipation Bupropion HCl (Wellbutrin Sr) 150 mg PO BID [facility] Last Admin: 08/25/18 09:19 Dose: 150 mg Clonidine (Catapres) 0.2 mg PO BID [facility] Last Admin: 08/25/18 09:20 Dose: 0.2 mg Clonidine (Catapres) 0.1 mg PO Q4H PRN PRN Reason: SBP Greater Than 170 Clopidogrel Bisulfate (Plavix) 75 mg PO DAILY [facility] Last Admin: 08/25/18 09:20 Dose: 75 mg Dextrose/Water (Dextrose 50%) 25 gm SLOW IVP PRN PRN PRN Reason: Hypoglycemia Doxepin HCl (Sinequan) 50 mg PO DAILY [facility] Last Admin: 08/25/18 09:19 Dose: 50 mg Famotidine (Pepcid) 20 mg PO 0900 [facility] Last Admin: 08/25/18 09:20 Dose: 20 mg Glucagon (Glucagon) 1 mg IM PRN PRN PRN Reason: Hypoglycemia Guaifenesin (Robitussin Sf) 200 mg PO Q4H PRN PRN Reason: Cough Heparin Sodium (Porcine) (Heparin) 5,000 units SC TID [facility] Last Admin: 08/25/18 09:20 Dose: 5,000 units Hydralazine HCl (Apresoline) 10 mg SLOW IVP Q4H PRN PRN Reason: SBP Greater Than 170 Last Admin: 08/15/18 13:22 Dose: 10 mg Dextrose/Water (D5w) 1,000 mls @ 0 mls/hr IV .Q0M PRN PRN Reason: Hypoglycemia Insulin Human Lispro (Humalog) 0 units SC .MODERATE SLIDING SC PRN PRN Reason: Moderate Correctional Scale Last Admin: 08/24/18 17:18 Dose: 2 unit Insulin Human Lispro (Humalog) 0 units SC .BEDTIME SLIDING SC PRN PRN Reason: Bedtime Correctional Scale Isosorbide Mononitrate (Ismo) 20 mg PO DAILY [facility] Last Admin: 08/25/18 09:19 Dose: 20 mg Loperamide HCl (Imodium) 2 mg PO PRN PRN PRN Reason: Diarrhea/Loose Stools Loratadine (Claritin) 10 mg PO DAILYPRN PRN PRN Reason: Sinus Symptoms Mineral Oil/White Petrolatum (Eucerin Cream) 0 gm TOP BIDPRN PRN PRN Reason: Dry Skin Miscellaneous Medication (Phos-Nak) 1 pkt PO BID [facility] Last Admin: 08/25/18 09:19 Dose: 1 pkt Nitroglycerin (Nitrostat) 0.4 mg SL Q5MIN [facility] Ondansetron HCl (Zofran) 4 mg IVP Q6H PRN PRN Reason: Nausea/Vomiting Ondansetron HCl (Zofran Odt) 4 mg SL Q6H PRN PRN Reason: Nausea/Vomiting Potassium Chloride (K-Dur) 20 meq PO BID [facility] Last Admin: 08/25/18 09:19 Dose: 20 meq Rosuvastatin Calcium (Crestor) 40 mg PO HS [facility] Last Admin: 08/24/18 20:31 Dose: 40 mg Senna/Docusate Sodium (Senokot S) 2 tab PO BID PRN PRN Reason: Constipation Sodium Chloride (Flush - Normal Saline) 10 ml IVF Q12HR [facility] Last Admin: 08/25/18 09:27 Dose: Not Given Sodium Chloride (Flush - Normal Saline) 10 ml IVF PRN PRN PRN Reason: Saline Flush Sodium Chloride ([place] Nasal [place] 0.65%) 0 ml EA NARE QIDPRN PRN PRN Reason: Nasal Congestion Throat Lozenges (Cepastat Lozenges) 1 micky PO Q2H PRN PRN Reason: Sore Throat Zolpidem Tartrate (Ambien) 5 mg PO HSPRN PRN PRN Reason: Insomnia
[2018-08-25 15:56] VITALS: BMI 40.1
[2018-08-25] MEDS: Rosuvastatin 20 MG TAB PO SCH (21:33)
[2018-08-26 05:40] LABS: #Eosinphils 0.1 thou/uL (0.0-0.7); #Lymphocytes 1.2 thou/uL (1.20-3.40); #Monocytes 1.6 thou/uL (0.11-0.59); #Neutrophils 15.5 thou/uL (1.40-6.50); %Basophils 0.2 % (0.0-1.0); %Eosinophils 0.5 % (0.0-10.0); %Lymphocytes 6.6 % (21.0-51.0); %Monocytes 8.5 % (0.0-10.0); %Neutrophils 84.2 % (42.0-75.0); Hemoglobin 11.4 g/dL (12.0-16.0); Mean Corpuscular HGB CONC 30.3 g/dL (32.0-36.0); Mean Corpuscular Hemoglobin 26.3 pg (27.0-31.0); Mean Corpuscular Volume 86.9 fL (78.0-98.0); Mean Platelet Volume 9.5 fL (7.4-10.4); Platelet Count 245 thou/uL (130-400); RBC Distribution Width 16.5 % (11.5-14.5); Red Blood Cell (RBC) Count 4.34 mill/uL (4.20-5.40); White Blood Cell (WBC) Count 18.4 thou/uL (4.8-10.8)
[2018-08-26 05:55] LABS: ALT (SGPT) 21 U/L (8-55); AST (SGOT) 23 U/L (5-34); Albumin 3.3 g/dL (3.4-4.8); Alkaline Phosphatase 252 U/L (40-150); Anion Gap 15 mmol/L (10-20); BUN (Urea Nitrogen) 12 mg/dL (9.8-20.1); Bilirubin, Total 0.5 mg/dL (0.2-1.2); Calc. Creatinine Clearance 38 mL/min (70-130); Calcium 8.8 mg/dL (7.8-10.44); Carbon Dioxide 13 mmol/L (23-31); Chloride 112 mmol/L (98-107); Estimated GFR-MDRD 25; Globulin 4.7 g/dL (2.4-3.5); Glucose 142 mg/dL (80-115); Magnesium 1.6 mg/dL (1.6-2.6); Phosphorus 3.1 mg/dL (2.3-4.7); Potassium 3.9 mmol/L (3.5-5.1); Sodium 136 mmol/L (136-145)
[2018-08-26] MEDS: Isosorbide Mononitrate 20 MG TAB PO SCH (09:08)
[2018-08-26] MEDS: Amlodipine 10 MG TAB PO SCH (09:08)
[2018-08-26] MEDS: Doxepin HCl 25 MG CAP PO SCH (09:08)
[2018-08-26] MEDS: Bupropion 150 MG SR TAB PO SCH ×2 (09:08→20:23)
[2018-08-26] MEDS: cloNIDine 0.2 MG TAB PO SCH ×2 (09:09→20:19)
[2018-08-26] MEDS: Heparin 5,000 UNITS/ML VIAL SC SCH ×3 (09:09→20:19)
[2018-08-26] MEDS: Potassium Chloride 20 MEQ TAB PO SCH ×2 (09:09→20:19)
[2018-08-26] MEDS: Famotidine 20 MG TAB PO SCH (09:09)
[2018-08-26] MEDS: Clopidogrel Bisulfate 75 MG TAB PO SCH (09:09)
--- NOTE | 2018-08-26 09:35 | PDOC.PN ---
- Subjective Encounter Start Date: 08/26/18 Encounter Start Time: 08:30 Patient seen and examined. No new complaints. No overnight events - Objective Resuscitation Status: Resuscitation Status FULL:Full Resuscitation MAR Reviewed: Yes Vital Signs & Weight: Vital Signs (12 hours) Temp Pulse Resp BP Pulse Ox 08/26/18 08:11 97.5 F L 96 16 120/71 91 L 08/26/18 04:39 97.7 F 87 18 124/77 96 08/26/18 00:25 97.6 F 89 18 136/73 97 Weight Admit Weight 231 lb Weight 231 lb 7 oz I&O: 08/25/18 08/26/18 08/27/18 06:59 06:59 06:59 Intake Total 1370 600 Output Total 200 Balance 1170 600 Result Diagrams: 08/26/18 05:17 08/26/18 05:17 Additional Labs: Accuchecks 08/26/18 08/25/18 08/25/18 05:49 20:54 16:13 POC Glucose 143 H 138 H 133 H 08/25/18 11:03 POC Glucose 216 H Phys Exam - Physical Examination Constitutional: NAD HEENT: PERRLA, moist MMs, sclera anicteric Neck: no JVD, supple Respiratory: no wheezing, no rales, no rhonchi Cardiovascular: RRR, no significant murmur, no rub Gastrointestinal: soft, non-tender, no distention, positive bowel sounds Musculoskeletal: no edema, pulses present Neurological: non-focal, normal sensation Lymphatic: no nodes Psychiatric: normal affect Skin: no rash, normal turgor Dx/Plan (1) Acute kidney failure Status: Acute Comment: (2) Acute metabolic encephalopathy Code(s): G93.41 - METABOLIC ENCEPHALOPATHY Status: Acute Comment: (3) Hypercalcemia of malignancy Code(s): E83.52 - HYPERCALCEMIA Status: Acute Comment: (4) Hypokalemia Code(s): E87.6 - HYPOKALEMIA Status: Acute Comment: (5) Lung cancer Code(s): C34.90 - MALIGNANT NEOPLASM OF UNSP PART OF UNSP BRONCHUS OR LUNG Status: Acute Qualifiers: Laterality: right Lung location: lower lobe of lung Qualified Code(s): C34.31 - Malignant neoplasm of lower lobe, right bronchus or lung Comment: metastatic to liver, bone, mediatinum, and Squemous cell type (6) Vitamin D deficiency Code(s): E55.9 - VITAMIN D DEFICIENCY, UNSPECIFIED Status: Acute Comment: (7) Anxiety and depression Code(s): F41.9 - ANXIETY DISORDER, UNSPECIFIED; F32.9 - MAJOR DEPRESSIVE DISORDER, SINGLE EPISODE, UNSPECIFIED Status: Chronic (8) Diabetes type 2, controlled Code(s): E11.9 - TYPE 2 DIABETES MELLITUS WITHOUT COMPLICATIONS Status: Chronic (9) Dyslipidemia Code(s): E78.5 - HYPERLIPIDEMIA, UNSPECIFIED Status: Chronic (10) GERD (gastroesophageal reflux disease) Code(s): K21.9 - GASTRO-ESOPHAGEAL REFLUX DISEASE WITHOUT ESOPHAGITIS Status: Chronic (11) Hypertension Code(s): I10 - ESSENTIAL (PRIMARY) HYPERTENSION Status: Chronic (12) Obesity (BMI 30-39.9) Code(s): E66.9 - OBESITY, UNSPECIFIED Status: Chronic (13) Hypomagnesemia Code(s): E83.42 - HYPOMAGNESEMIA Status: Acute Comment: corrected (14) Leucocytosis Code(s): D72.829 - ELEVATED WHITE BLOOD CELL COUNT, UNSPECIFIED Status: Acute (15) Hypophosphatemia Code(s): E83.39 - OTHER DISORDERS OF PHOSPHORUS METABOLISM Status: Acute - 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 * tried to call daughter on phone but no response, voice mail left * medication reviewed as below * symptomatic treatment * continue IVF today for elevated creatinine * she will need outpt palliative chemotherapy. * family seems like not interested in placement * her assisted prognosis is very poor Review of Systems - Review of Systems ENT: negative: Ear Pain, Ear Discharge, Nose Pain, Nose Discharge, Nose Congestion, Mouth Pain, Mouth Swelling, Throat Pain, Throat Swelling, Other Respiratory: negative: Cough, Dry, Shortness of Breath, Hemoptysis, SOB with Excertion, Pleuritic Pain, Sputum, Wheezing Cardiovascular: negative: chest pain, palpitations, orthopnea, paroxysmal nocturnal dyspnea, edema, light headedness, other Gastrointestinal: negative: Nausea, Vomiting, Abdominal Pain, Diarrhea, Constipation, Melena, Hematochezia, Other Genitourinary: negative: Dysuria, Frequency, Incontinence, Hematuria, Retention , Other Musculoskeletal: negative: Neck Pain, Shoulder Pain, Arm Pain, Back Pain, Hand Pain, Leg Pain, Foot Pain, Other Skin: negative: Rash, Lesions, Carlos, Bruising, Other Neurological: Confusion. negative: Weakness, Numbness, Incoordination, Change in Speech, Seizures, Other - Medications/Allergies Allergies/Adverse Reactions: Allergies Allergy/AdvReac Type Severity Reaction Status Date / Time No Known Allergies Allergy Unverified 08/14/18 23:52 Medications: Current Medications Acetaminophen (Tylenol) 500 mg PO Q6H PRN PRN Reason: Mild Pain (1-3) Last Admin: 08/24/18 20:31 Dose: 500 mg Amlodipine Besylate (Norvasc) 10 mg PO DAILY [facility] Last Admin: 08/26/18 09:08 Dose: 10 mg Artificial Tears (Tears Naturale) 2 drop EA EYE PRN PRN PRN Reason: Dry Eyes Bisacodyl (Dulcolax) 10 mg PO DAILYPRN PRN PRN Reason: Constipation Bisacodyl (Dulcolax) 10 mg [place] DAILYPRN PRN PRN Reason: Constipation Bupropion HCl (Wellbutrin Sr) 150 mg PO BID [facility] Last Admin: 08/26/18 09:08 Dose: 150 mg Clonidine (Catapres) 0.2 mg PO BID [facility] Last Admin: 08/26/18 09:09 Dose: 0.2 mg Clonidine (Catapres) 0.1 mg PO Q4H PRN PRN Reason: SBP Greater Than 170 Clopidogrel Bisulfate (Plavix) 75 mg PO DAILY [facility] Last Admin: 08/26/18 09:09 Dose: 75 mg Dextrose/Water (Dextrose 50%) 25 gm SLOW IVP PRN PRN PRN Reason: Hypoglycemia Doxepin HCl (Sinequan) 50 mg PO DAILY [facility] Last Admin: 08/26/18 09:08 Dose: 50 mg Famotidine (Pepcid) 20 mg PO 0900 [facility] Last Admin: 08/26/18 09:09 Dose: 20 mg Glucagon (Glucagon) 1 mg IM PRN PRN PRN Reason: Hypoglycemia Guaifenesin (Robitussin Sf) 200 mg PO Q4H PRN PRN Reason: Cough Heparin Sodium (Porcine) (Heparin) 5,000 units SC TID [facility] Last Admin: 08/26/18 09:09 Dose: 5,000 units Hydralazine HCl (Apresoline) 10 mg SLOW IVP Q4H PRN PRN Reason: SBP Greater Than 170 Last Admin: 08/15/18 13:22 Dose: 10 mg Dextrose/Water (D5w) 1,000 mls @ 0 mls/hr IV .Q0M PRN PRN Reason: Hypoglycemia Insulin Human Lispro (Humalog) 0 units SC .MODERATE SLIDING SC PRN PRN Reason: Moderate Correctional Scale Last Admin: 08/24/18 17:18 Dose: 2 unit Insulin Human Lispro (Humalog) 0 units SC .BEDTIME SLIDING SC PRN PRN Reason: Bedtime Correctional Scale Isosorbide Mononitrate (Ismo) 20 mg PO DAILY [facility] Last Admin: 08/26/18 09:08 Dose: 20 mg Loperamide HCl (Imodium) 2 mg PO PRN PRN PRN Reason: Diarrhea/Loose Stools Loratadine (Claritin) 10 mg PO DAILYPRN PRN PRN Reason: Sinus Symptoms Mineral Oil/White Petrolatum (Eucerin Cream) 0 gm TOP BIDPRN PRN PRN Reason: Dry Skin Miscellaneous Medication (Phos-Nak) 1 pkt PO BID [facility] Last Admin: 08/26/18 09:09 Dose: 1 pkt Nitroglycerin (Nitrostat) 0.4 mg SL Q5MIN [facility] Ondansetron HCl (Zofran) 4 mg IVP Q6H PRN PRN Reason: Nausea/Vomiting Ondansetron HCl (Zofran Odt) 4 mg SL Q6H PRN PRN Reason: Nausea/Vomiting Potassium Chloride (K-Dur) 20 meq PO BID [facility] Last Admin: 08/26/18 09:09 Dose: 20 meq Rosuvastatin Calcium (Crestor) 40 mg PO HS [facility] Last Admin: 08/25/18 21:33 Dose: 40 mg Senna/Docusate Sodium (Senokot S) 2 tab PO BID PRN PRN Reason: Constipation Sodium Chloride (Flush - Normal Saline) 10 ml IVF Q12HR [facility] Last Admin: 08/26/18 09:17 Dose: Not Given Sodium Chloride (Flush - Normal Saline) 10 ml IVF PRN PRN PRN Reason: Saline Flush Sodium Chloride ([place] Nasal [place] 0.65%) 0 ml EA NARE QIDPRN PRN PRN Reason: Nasal Congestion Throat Lozenges (Cepastat Lozenges) 1 micky PO Q2H PRN PRN Reason: Sore Throat Zolpidem Tartrate (Ambien) 5 mg PO HSPRN PRN PRN Reason: Insomnia
[2018-08-26] MEDS: Sodium Chloride 0.9% 1,000 ML IV SCH (12:52)
[2018-08-26] MEDS: Rosuvastatin 20 MG TAB PO SCH (20:18)
[2018-08-26] MEDS: Acetaminophen 500 MG TAB PO PRN (20:23)
[2018-08-27] MEDS: Sodium Chloride 0.9% 1,000 ML IV SCH ×2 (01:22→12:56)
[2018-08-27 05:39] VITALS: TEMP 97.9
[2018-08-27] MEDS: cloNIDine 0.2 MG TAB PO SCH (08:49)
[2018-08-27] MEDS: Clopidogrel Bisulfate 75 MG TAB PO SCH (08:49)
[2018-08-27] MEDS: Amlodipine 10 MG TAB PO SCH (08:49)
[2018-08-27] MEDS: Bupropion 150 MG SR TAB PO SCH (08:49)
[2018-08-27] MEDS: Doxepin HCl 25 MG CAP PO SCH (08:50)
[2018-08-27] MEDS: Heparin 5,000 UNITS/ML VIAL SC SCH ×2 (08:50→15:02)
[2018-08-27] MEDS: Famotidine 20 MG TAB PO SCH (08:50)
[2018-08-27] MEDS: Isosorbide Mononitrate 20 MG TAB PO SCH (08:50)
[2018-08-27] MEDS: Potassium Chloride 20 MEQ TAB PO SCH (08:50)
--- NOTE | 2018-08-27 11:01 | DIS ---
DATE OF ADMISSION: 08/14/2018 DATE OF DISCHARGE: 08/27/2018 PRIMARY CARE PHYSICIAN: DISCHARGE DISPOSITION: Home with family support. PRIMARY DISCHARGE DIAGNOSES: 1. Acute metabolic encephalopathy. 2. Acute kidney failure on top of chronic kidney disease stage 3. 3. Hypercalcemia of malignancy. 4. Hypokalemia. 5. Hypomagnesemia. 6. Hypophosphatemia. 7. Urinary tract infection. 8. Vitamin D deficiency. SECONDARY DISCHARGE DIAGNOSES: Metastatic lung cancer with mets to the mediastinum, liver, and bone, gastroesophageal reflux disease, dyslipidemia, hypertension, obesity with BMI 39, diabetes type 2, a nxiety and depression, chronic kidney disease stage 3, coronary artery disease with stent. PRIMARY PROCEDURE AND OPERATION: PICC line placement. RADIOLOGICAL INVESTIGATION: None. SIGNIFICANT LABORATORY DATA: WBC 18.4, hemoglobin 11.4, platelet 245. Sodium 136, potassium 3.9, BU N 12, creatinine 2.32, glucose 142, calcium 8.8, phosphorus 3.1, magnesium 1.6, AST 23, ALT 21, alkal ine phosphatase 252, albumin 3.1. Serum protein electrophoresis negative. Vitamin D hydroxy level 5 .7, 125-vitamin D level 30.7. PTH 4.6 and PTHrP elevated. Blood culture and urine culture, negative. DISCHARGE MEDICATIONS: Nitroglycerin 0.4 mg sublingual p.r.n., amlodipine 10 mg daily, bupropion SR 150 mg p.o. b.i.d., clonidine 0.2 mg p.o. b.i.d., Plavix 75 mg p.o. daily, Dexilant 60 mg p.o. daily, doxepin 50 mg p.o. daily, Lasix 40 mg p.o. daily, Imdur 20 mg p.o. daily, Toprol-XL 50 mg p.o. b.i.d ., morphine sulfate 30 mg q.8 hours p.r.n., potassium chloride 20 mEq p.o. b.i.d., Crestor 40 mg p.o. daily, glipizide 5 mg p.o. daily. CONTRAINDICATIONS: None. CODE STATUS: FULL CODE. INPATIENT CONSULTANTS: Oncology group was following while in hospital. The patient is already follo wing Oncology in the [place] area and a plan for Keytruda treatment. Nephrology was following while in hospital. TEST RESULTS PENDING ON DISCHARGE: None. ALLERGIES: No known drug allergy. DISCHARGE PLAN: Post hospital, the patient will follow up with primary care physician in 1 week and subsequently patient needs to follow up with Oncology to get outpatient treatment. HOSPITAL COURSE: A 67-year-old female who was admitted by Dr. Lorne Bustillos on 08/15/2018. On adm ission, the patient had malignant hypercalcemia. Her calcium level on admission was greater than 17. The patient had acute metabolic encephalopathy. We suspected hypercalcemia of malignancy as the benny garg has a history of lung cancer. While in hospital, she was admitted to telemetry floor. We treated her with IV fluid and diuresis. Patient was also given Zometa and after that the patient's calcium slowly improved. At the same time , the patient also had other abnormal electrolytes, which [facility] Her hypercalcemia of malignancy is related with a PTHrP. 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 This patient was planned for ou tpatient followup with the oncologist in the [place] area to get specific treatment discussion, but s he has not made appointment yet and she has not started any specific therapy. This patient's mental status was improving. At that point, we transferred her to medical floor. Thi s patient was intermittently confused and she was physically weak and that is why patient was not saf e for discharge to go home and that is why she stayed in hospital longer. We had multiple times disc ussion with the patient's family member, but they do [place] rather than they will provide support to her at home. At this point, the patient appears to be at baseline. We adjusted medication as above. The patient is now irritated being in hospital and her family member will support her at home. Patient wants to go home today. The patient is seen and examined at bedside today. PHYSICAL EXAMINATION: VITAL SIGNS: Today, temperature 97.9, pulse 90, respiratory rate 18, saturation 97% on room air, blo od pressure 138/79, weight 227 pounds. GENERAL: The patient is currently alert, awake, no obvious acute distress. HEAD: Normocephalic, atraumatic. EYES: Pupils round, reactive to light. Extraocular muscle intact. ENT: Oropharynx within normal limits. LUNGS: Clear to auscultation without any rhonchi or rales. CARDIAC: S1, S2 regular without any murmur. ABDOMEN: Soft and benign without any tenderness. EXTREMITIES: No edema. NEUROLOGIC: Nonfocal examination. This patient has very poor long-term prognosis for her metastatic advanced lung cancer. She is going to get Keytruda treatment as an outpatient basis, but if her treatment does not respond well, then s he will be a better candidate for hospice and that primary care physician need to initiate. Because of all other comorbidities, she is continued to be very high risk for recurrent admission. Total time spent on discharge day 31 minutes.
[2018-08-27 15:12] VITALS: BP 132/70
--- NOTE | 2018-08-27 17:49 | EKG ---
Test Reason : Blood Pressure : / mmHG Vent. Rate : 099 BPM Atrial Rate : 099 BPM P-R Int : 206 ms QRS Dur : 112 ms QT Int : 320 ms P-R-T Axes : 062 -08 198 degrees QTc Int : 410 ms Normal sinus rhythm Left ventricular hypertrophy with repolarization abnormality Abnormal ECG Confirmed by HAMILTON CACERES ([id number]), loan expeditor [address] ([id number]) on 08/27/2018 5:48:38 PM Referred By: Confirmed By:HAMILTON CACERES
== END 2018-08-27 18:01 | disposition home or self-care (01) | DRG 640 ==
LOC: ERS 19:49 → 2NO 23:02 → SURG A 08-18 23:14
PROVIDERS: ADMIT Internal Medicine; ATTEND Internal Medicine
PROC: 02HV33Z Insertion of Infusion Device into Superior Vena Cava, Percutaneous Approach (ICD-10-PCS; principal; 2018-08-17)
DX: E83.52 Hypercalcemia (principal); G93.41 Metabolic encephalopathy; N17.9 Acute kidney failure, unspecified; N39.0 Urinary tract infection, site not specified; C78.1 Secondary malignant neoplasm of mediastinum; C78.7 Secondary malignant neoplasm of liver and intrahepatic bile duct; C79.51 Secondary malignant neoplasm of bone; C34.31 Malignant neoplasm of lower lobe, right bronchus or lung; E87.0 Hyperosmolality and hypernatremia; I12.9 Hypertensive chronic kidney disease with stage 1 through stage 4 chronic kidney disease, or unspecified chronic kidney disease; E11.22 Type 2 diabetes mellitus with diabetic chronic kidney disease; N18.3 Chronic kidney disease, stage 3 (moderate); Z79.84 Long term (current) use of oral hypoglycemic drugs; E87.6 Hypokalemia; E83.42 Hypomagnesemia; E83.39 Other disorders of phosphorus metabolism; K21.9 Gastro-esophageal reflux disease without esophagitis; E78.5 Hyperlipidemia, unspecified; E66.9 Obesity, unspecified; Z68.39 Body mass index [BMI] 39.0-39.9, adult; F32.9 Major depressive disorder, single episode, unspecified; F41.9 Anxiety disorder, unspecified; I25.10 Atherosclerotic heart disease of native coronary artery without angina pectoris; Z95.5 Presence of coronary angioplasty implant and graft; E86.0 Dehydration
CPT/HCPCS: 36415; 36416; 36569; 80048; 80053; 80069; 81003; 81015; 82306; 82340; 82652; 83605; 83735; 83880; 83970; 84100; 84165; 85025; 87040; 87086; 93005; 96360; 96361; A4353; C1751; G8978-GP-CM; G8979-GP-CK; G8987-GO-CM; G8988-GO-CK; G8996-GN-CK; G8997-GN-CJ; J0360; J0696; J1644; J1940; J3475; J3480; J3489; J7050; S0028